=== PATIENT | male | born 1975 | race Caucasian/White ===

== ENCOUNTER 2020-01-31 09:10 | Outpatient (REF) | payer OTHER, SELFPAY ==
[2020-01-31 11:03] LABS: COVID-19 Test Negative (Negative)
== END 2020-01-31 09:11 | disposition home or self-care (01) ==
LOC: HO.EMPCOV 09:10
PROVIDERS: PCP Internal Medicine; Visit Provider Internal Medicine
DX: Z20.828 Contact with and (suspected) exposure to other viral communicable diseases (principal)
CPT/HCPCS: 87635; C9803

== ENCOUNTER 2020-02-29 06:30 | Outpatient (REF) | payer OTHER, SELFPAY ==
[2020-02-29 06:57] LABS: COVID-19 Test Negative (Negative)
== END 2020-02-29 06:31 | disposition home or self-care (01) ==
LOC: HO.EMPCOV 06:30
PROVIDERS: PCP Internal Medicine; Visit Provider Internal Medicine
DX: Z20.828 Contact with and (suspected) exposure to other viral communicable diseases (principal)
CPT/HCPCS: 87635; C9803

== ENCOUNTER → 2021-11-09 11:38 | Outpatient (BNVA) | payer OTHER, SELFPAY | PROVIDERS: PCP Internal Medicine; Visit Provider Physician Assistant Medical | DX: Z13.89 Encounter for screening for other disorder (principal) | CPT/HCPCS: 99202 ==

== ENCOUNTER → 2022-01-03 13:14 | Outpatient (RCR) | payer OTHER, SELFPAY ==
[2020-03-07 07:46] LABS: COVID-19 Test Negative (Negative)
[2020-03-22 09:32] LABS: SARS-COV-2 PCR UMBRL Not Detected
[2020-03-22 14:50] LABS: COVID-19 Test Negative (Negative)
[2020-03-31 15:30] LABS: SARS-COV-2 PCR UMBRL NEGATIVE
[2020-04-06 06:46] LABS: COVID-19 Test Negative (Negative)
== END | disposition home or self-care (01) ==
LOC: HO.EMPCOV 03-07 06:33
PROVIDERS: Visit Provider Internal Medicine
DX: Z20.828 Contact with and (suspected) exposure to other viral communicable diseases (principal)
CPT/HCPCS: 36415; 87635; C9803; U0003

== ENCOUNTER 2022-10-17 14:16 | Outpatient (AMB) | payer OTHER, SELFPAY ==
[2022-10-17 14:20] VITALS: BP 138/86; PULSE 86; O2SAT 98; BMI 28.5
--- NOTE | 2022-10-17 14:20 | A.OFFPC_ITS ---
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 Accompanied by: Self / Same As Patient Allergies No Known Allergies [No Known Allergies*] Allergy (Verified 10/17/22 14:21) Medication List - Last Reconciled 10/17/22 by Donato Driver MD bisacodyl (Dulcolax (bisacodyl)) 10 mg (2 x 5 mg) PO ONCE 1 day methylcellulose (laxative) (Citrucel) 500 mg PO DAILY polyethylene glycol 3350 (Miralax) 238 grams PO ONCE sennosides (Natural Senna Laxative) 8.6 mg PO BEDTIME Tobacco use date assessed: 10/17/22 Dental Screening Dental Screen Date: 10/17/22 Did you have a dental visit in the last 12 months?: No Did you have a dental problem in the last 6 months where you did not have access to dental care?: No Was dental information given to patient?: No HPI PE HPI Details healthy PFSH Surgical History No pertinent past surgical history Family History Mother No problems noted. Father No problems noted. Social History Housing: Apartment Patient Tobacco Use Status: Current everyday Tobacco user Tobacco use type: Cigarette Cigarettes Per Day: 10 e-Cigarette/Vaping Use: Never Used Second Hand Smoke Exposure: No service: No Current occupational status: employed Cognitive needs: No Hearing needs: No Vision needs: No Questionnaire PHQ-9 Over the last 2 weeks, how often have you been bothered by any of the following problems? 1. Little interest or pleasure in doing things: not at all 2. Feeling down, depressed, or hopeless: not at all 3. Trouble falling or staying asleep, or sleeping too much: not at all 4. Feeling tired or having little energy: not at all 5. Poor appetite or overeating: not at all 6. Feeling bad about yourself - or that you are a failure or have let yourself or your family down: not at all 7. Trouble concentrating on things, such as reading the newspaper or watching television: not at all 8. Moving or speaking so slowly that other people could have noticed. Or the opposite - being so fidgety or restless that you have been moving around a lot more than usual: not at all 9. Thoughts that you would be better off or of hurting yourself in some way: not at all Total score: 0 Depression Screening Interpretation: Negative 06936 - PHQ-9 Billing: Yes Source: Developed by Drs. Tyrone Perdomo, Shaye Escobar, Jose Eduardo Quesada and colleagues, with an educational monty from [employer]. Thrive Questionnaire Date Thrive assessed: 10/17/22 I am a: Patient What is your living situation today?: I have a steady place to live Within the past 12 months, did the food you bought not last and you didn't have the money to get more?: Never true Within the past 12 months, did you worry whether your food would run out before you got money to buy more?: Never true Do you have trouble paying for medicines?: No Do you have trouble getting transportation to medical appointments?: No Do you have trouble paying your heating and electricity bill?: No Do you have trouble taking care of your child, family member or friend?: No Do you have trouble with day-to-day activities such as bathing, preparing meals, shopping, managing finances, etc.?: No Are you currently unemployed and looking for a job?: No Are you interested in more education?: No Please select the resources that you would like help with: None Currently or been in a relationship where the following occur: no concerns reported AUDIT C Alcohol Use Questionnaire (AUDIT-C) 1. How often do you have a drink containing alcohol?: 2-3 times a week 2. How many drinks containing alcohol do you have on a typical day when you are drinking?: 5 or 6 3. How often do you have six or more drinks on one occasion?: Weekly Total Score: 8 Score Reviewed/Action Taken: Yes (discussed need to moderate) TESS-7 AMB Questionnaire TESS-7 Date TESS - 7 assessed: 10/17/22 Feeling nervous, anxious, or on edge: 0 = Not at all Not being able to stop or control worryin = Not at all Worrying too much about different things: 0 = Not at all Trouble relaxin = Not at all Being so restless that it is hard to sit still: 0 = Not at all Becoming easily annoyed or irritable: 0 = Not at all Feeling afraid as if something awful might happen: 0 = Not at all Total TESS-7 score (0-4 normal; 5-9 mild; 10-14 moderate; 15-21 severe): 0 Source: Developed by Drs. Tyrone Perdomo, Shaye Escobar, Jose Eduardo Quesada and colleagues, with an educational monty from [employer]. TESS-7 Assessment Billing TESS-7 Assessment Tool: TESS-7 Assessment 68986 Review of Systems Const Denies chills, Denies fatigue, Denies headache(s) and Denies weight loss Eyes Denies change in vision, Denies diplopia and Denies eye pain ENT Denies vertigo, Denies dizziness, Denies headache(s) and Denies nasal discharge Card Denies chest pain, Denies rapid heart rate and Denies dyspnea on exertion Resp Denies chest congestion, Denies cough, Denies pain with cough and Denies dyspnea on exertion GI Denies abdominal pain, Denies hematochezia and Denies change in bowel habits Musc Denies myalgias, Denies arthralgias and Denies joint swelling Skin/Breast Denies lesions and Denies unusual bruising Neuro Denies vertigo, Denies dizziness, Denies headache(s) and Denies focal weakness Endo Denies fatigue Physical exam (Primary Care) Vital Signs: Last Vital Signs Pulse 86 10/17/22 14:20 BP 138/86 10/17/22 14:20 Pulse Ox 98 10/17/22 14:20 Oxygen Delivery Method Room Air 10/17/22 14:20 BMI result Body Mass Index 28.5 Tobacco/Smoking Status: Tobacco use Status Tobacco use date assessed 10/17/22 10/17/22 14:26 Patient Tobacco Use Status Current everyday Tobacco 10/17/22 14:26 Tobacco use type Cigarette 10/17/22 14:26 e-Cigarette/Vaping Use Never Used 10/17/22 14:26 PHQ-9: PHQ-9 Score PHQ-9: Total score 0 10/17/22 14:26 Depression Screening Interpretation: Negative Thrive Assessment: Date of Thrive Assessment Date Thrive assessed 10/17/22 10/17/22 14:26 Currently or been in a relationship where the following occur: no concerns reported Const General: cooperative, healthy appearing and no acute distress Orientation/consciousness: oriented to person, oriented to place and oriented to time HENMT Head: Yes normal to inspection, Yes normocephalic and Yes atraumatic Mouth: Normal oral and palatal mucosa present and tongue normal Throat: Yes posterior oropharynx normal and Yes uvula midline Eyes General: appearance normal, both eyes and all related structures Neck Neck: Yes normal visual inspection, Yes full ROM and Yes no lymphadenopathy Thyroid: Thyroid normal Carotids: normal carotid upstroke Chest Chest palpation & inspection: normal inspection of the chest Resp Effort & Inspection: normal respiratory effort and able to speak in complete sentences Auscultation: clear to auscultation bilaterally Cardio Jugular venous distension: no JVD Palpation: normal PMI Rate: regular rate Rhythm: regular rhythm Heart sounds: S1 normal heart sound present and S2 normal heart sound present GI Inspection: Yes normal to inspection Palpation (GI): Soft to palpation and No hepatosplenomegaly present Auscultation: normal bowel sounds General: Yes no CVA tenderness Back/Spine/Pelvis Back: no CVA tenderness Skin General skin exam: no rashes or lesions noted Neuro General: oriented to person, oriented to place and oriented to time Extrem General: Yes normal to inspection and Yes full ROM Assessment and Plan Assessment & Plan (1) Physical exam: Code(s): Z00.00 - Encounter for general adult medical examination without abnormal findings Orders: Orders Comprehensive [place]. Panel Fast Today N28.9 - Disorder of kidney and ureter, unspecified Lipid Panel Today E78.5 - Hyperlipidemia, unspecified Thyroid Stimulating Hormone Today E03.9 - Hypothyroidism, unspecified Complete Blood Count Auto Diff Today D64.9 - Anemia, unspecified Referrals Orthopedics Referral M25.529 - Pain in unspecified elbow Coding Level of Care Code Est Pt Prev Care 40-64y(61377) Diagnoses Physical exam Z00.00 Additional Codes TESS-7 Assessment Billing - TESS-7 Assessment Tool: TESS-7 Assessment 39092 ([id number])
== END 2022-10-17 14:37 | disposition home or self-care (01) ==
PROVIDERS: PCP Internal Medicine; Visit Provider Internal Medicine
DX: Z00.00 Encounter for general adult medical examination without abnormal findings (principal)
CPT/HCPCS: 99396

== ENCOUNTER 2022-10-31 09:19 | Outpatient (REF) | payer OTHER, SELFPAY ==
--- NOTE | ~2022-10-31 | XR_ITS ---
EXAMINATION: XR ELBOW, LEFT CLINICAL INFORMATION: Lateral epicondylitis COMPARISON: 04/28/2019 TECHNIQUE: AP, lateral, and oblique views of the left elbow. FINDINGS: A tiny corticated osseous density seen along the ventral aspect of the distal humerus medially. No significant joint effusion is seen. There is mild soft tissue swelling. XR/XR elbow LT min 3V IMPRESSION: Alignment preserved. Tiny punctate soft tissue calcifications/ossific fragment adjacent to the proximal to mid shaft of the radius was not identified on the exam of 04/28/2019. Amorphous soft tissue calcifications adjacent to the lateral epicondyle. IMPRESSION: Tiny punctate soft tissue calcifications/ossific fragment adjacent to the proximal to mid shaft of the radius was not identified on the exam of 04/28/2019. Amorphous soft tissue calcifications adjacent to the lateral epicondyle, progressed since 2020. Correlation with clinical exam recommended to determine further management. Additional imaging with CT scan or MRI should be considered for better visualization as these modalities are much more sensitive for detection of fracture or other underlying pathology.
--- NOTE | ~2022-10-31 | XR_ITS ---
EXAMINATION: XR ELBOW, RIGHT CLINICAL INFORMATION: Lateral epicondylitis, unspecified elbow Evaluate for avulsion fracture COMPARISON: None available. TECHNIQUE: AP, lateral, and oblique views of the right elbow. FINDINGS: There is a 0.4 cm ossific or calcific density noted adjacent to the ulnar aspect of the radial head. This may represent a small avulsion fracture, of unknown origin. There is probably a small joint effusion. Alignment is anatomic. Joint spaces are maintained. XR/XR elbow RT min 3V IMPRESSION: 0.4 cm ossific or calcific density noted adjacent to the ulnar aspect of the radial head. This may represent a small avulsion fracture, of unknown origin.
== END 2022-10-31 09:20 | disposition home or self-care (01) ==
LOC: HO.HOSX 09:19
PROVIDERS: PCP Internal Medicine; Visit Provider Physical Medicine & Rehabilitation
DX: M77.01 Medial epicondylitis, right elbow (principal); M77.02 Medial epicondylitis, left elbow
CPT/HCPCS: 73080

== ENCOUNTER 2022-10-31 09:19 | Outpatient (AMB) | payer OTHER, SELFPAY ==
[2022-10-31 09:48] VITALS: BMI 28.5
--- NOTE | 2022-10-31 09:48 | A.OFFVIS_ITS ---
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 States currently his right is worse. Hx of bones spurs in elbow. States pain started about 2 yrs ago. Seen at work connection where xrays were done and he decline surgery. States his pain is constant and is worsen with movement or banging it on a surface. Has difficulty lifting. Has numbness and tingling in both hands, and his elbow is tender to touch. 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 That was 2 years ago. Went to work connection, xray done, told to have bone spurs that were said to be old . Worse since 1 month ago, banged right elbow on a hard surface. It was bruised. Severe pain. Constant numbness on more medial fingers. Weaker chrome cleaner and strength to carry. Used to curl up to 60 lbs before but not anymore. Left elbow on/off. Not as much numbness. If any, more the medial fingers. Treatment done so far: NSAIDs - tried no relief therapy - none yet no brace [facility] Medical History (Updated 10/31/22 @ 10:23 by Sis Cooper MD) Lateral epicondylitis of elbow Medial epicondylitis of both elbows Surgical History No pertinent past surgical history Family History Mother No problems noted. Father No problems noted. 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 MSK: Inspection reveals appropriate head and neck positioning. No pain with palpation over the neck musculature. Cervical ROM was full. Spurling's sign negative. Bilateral shoulder ROM WNL. No ligamentous laxity or crepitance. No increased effusion. No point tenderness on medial or lateral epicondyles. Mild tenderness over bilateral flexor and extensor tendons. No swelling or edema. Mild pain with resisted wrist flexion. No intrinsic hand weakness noted. No atrophy noted. Olya test negative. Carpal compression test positive bilateral wrists. Tinel sign positive bilateral elbow and wrist. Strength is 5/5 in all muscle groups tested. No increased tone noted. Neurological: Neurologic examination of the upper and lower extremities was nonfocal with intact sensation, muscle stretch reflexes and without focal motor deficits . Hunter?s negative bilaterally. Babinski was down going bilaterally. Clonus was negative. Gait is non-antalgic without loss of balance. Results Reviewed Results Reviewed: I independently reviewed the results of the following: Independently reviewed images on PACS left elbow 04/28/2019 - small osseous structures seen medially, no fracture, no swelling. Possible avulsion fracture. Reading mentioned that possible old injury. I reviewed records from the following: PCP Assessment & Plan Assessment & Plan (1) Medial epicondylitis of both elbows: Code(s): M77.01 - Medial epicondylitis, right elbow; M77.02 - Medial epicondylitis, left elbow (2) Lateral epicondylitis of elbow: Code(s): M77.10 - Lateral epicondylitis, unspecified elbow (3) Carpal tunnel syndrome on both sides: Code(s): G56.03 - Carpal tunnel syndrome, bilateral upper limbs (4) Ulnar neuropathy at elbow: Code(s): G56.20 - Lesion of ulnar nerve, unspecified upper limb Plan Chronic on and off bilateral elbow pain, most likely from repetitive motion, causing medial flexor tendinopathy and lateral extensor tendinopathy. Old left elbow x-ray showed possible avulsion fracture. We will provide with counterforce brace to use during the day and at work. Ice and relative rest. We will do elbow x-rays today. Given numbness in distribution of both median and ulnar nerves, we will schedule for EMG. He can also wear wrist splint at night. Assessment and plan discussed with patent, and patient was agreeable. All questions were answered thoroughly.. Follow-up after EMG Orders: Orders XR wrist LT min 3V Today M77.01 - Medial epicondylitis, right elbow, M77.02 - Medial epicondylitis, left elbow, M77.10 - Lateral epicondylitis, unspecified elbow XR wrist RT min 3V Today M77.01 - Medial epicondylitis, right elbow, M77.02 - Medial epicondylitis, left elbow, M77.10 - Lateral epicondylitis, unspecified e lbow NE nerve conduction velocity Today G56.03 - Carpal tunnel syndrome, bilateral upper limbs, G56.20 - Lesion of ulnar nerve, unspecified upper limb Coding Level of Care Code New Pt Level 4 (48129) Diagnoses Medial epicondylitis of both elbows M77.01; M77.02 Lateral epicondylitis of elbow M77.10 Carpal tunnel syndrome on both sides G56.03 Ulnar neuropathy at elbow G56.20
== END 2022-10-31 10:28 | disposition home or self-care (01) ==
PROVIDERS: PCP Internal Medicine; Visit Provider Physical Medicine & Rehabilitation
DX: M77.01 Medial epicondylitis, right elbow (principal); M77.02 Medial epicondylitis, left elbow; M77.10 Lateral epicondylitis, unspecified elbow; G56.03 Carpal tunnel syndrome, bilateral upper limbs; G56.20 Lesion of ulnar nerve, unspecified upper limb
CPT/HCPCS: 99204

== ENCOUNTER 2022-11-06 14:14 | Outpatient (REF) | payer OTHER, SELFPAY ==
--- NOTE | 2022-11-06 14:18 | EMG_ITS ---
Chief complaint: Chronic bilateral elbow and wrist pain, seen in the office by me last week, see full note Reason for referral: Evaluate for Carpal Tunnel Syndrome or ulnar neuropathy Procedure done: Bilateral upper extremities NCS/EMG Precautions and/or limitations: None The limb temperature was monitored continuously and remained between 32-36 degrees C during the performance of the NCS. Nerve Conduction Studies Anti Sensory Summary Table ?Stim Site NR Onset (ms) Norm Onset (ms) Peak (ms) Norm Peak (ms) O-P Amp (?V) Norm O-P Amp Site1 Site2 Delta-0 (ms) Dist (cm) Orlando (m/s) Norm [place] (m/s) Left Median Anti Sensory (2nd Digit) Wrist ? 3.6 3.8 <3.6 14.2 >10 Wrist 2nd Digit 3.6 14.0 39 Right Median Anti Sensory (2nd Digit) Wrist ? 2.6 3.3 <3.6 21.4 >10 Wrist 2nd Digit 2.6 14.0 54 Right Radial Anti Sensory (Thumb) Forearm ? 1.4 2.0 <3.1 32.8 Forearm Thumb 1.4 0.0 Left Ulnar Anti Sensory (5th Digit) Wrist ? 2.5 3.4 <3.7 50.3 >15.0 Wrist 5th Digit 2.5 14.0 56 Right Ulnar Anti Sensory (5th Digit) Wrist ? 2.3 3.0 <3.7 29.0 >15.0 Wrist 5th Digit 2.3 14.0 61 Motor Summary Table ?Stim Site NR Onset (ms) Norm Onset (ms) O-P Amp (mV) Norm O-P Amp iAmp (mV) Amp (1st) (%) Site1 Site2 Delta-0 (ms) Dist (cm) Orlando (m/s) Norm [place] (m/s) Left Median Motor (Abd Poll Brev) Wrist ? 9.2 <3.9 2.7 >4.5 3.9 100.0 Elbow Wrist 4.2 24.5 58 >45 Elbow ? 13.4 3.2 3.4 118.5 Right Median Motor (Abd Poll Brev) Wrist ? 3.5 <3.9 4.5 >4.5 5.4 100.0 Elbow Wrist 4.0 13.5 34 >45 Elbow ? 7.5 3.8 4.7 84.4 Left Ulnar Motor (Abd Dig Minimi) Wrist ? 2.7 <3.0 7.9 >5 11.7 100.0 B Elbow Wrist 3.5 20.0 57 >45 B Elbow ? 6.2 7.8 12.0 98.7 A Elbow B Elbow 1.4 10.0 71 >45 A Elbow ? 7.6 7.3 11.3 92.4 Right Ulnar Motor (Abd Dig Minimi) Wrist ? 2.3 <3.0 6.1 >5 7.5 100.0 B Elbow Wrist 3.7 19.0 51 >45 B Elbow ? 6.0 6.0 7.5 98.4 A Elbow B Elbow 1.0 10.0 100 >45 A Elbow ? 7.0 6.7 8.5 109.8 Comparison Summary Table ?Stim Site NR Peak (ms) Norm Peak (ms) P-T Amp (?V) Site1 Site2 Delta-P (ms) Norm Delta (ms) Right Median/Radial Dig I Comparison (Digit 1 - 10cm) Median ? 2.5 <2.9 61.1 Median Radial 0.3 Radial ? 2.2 <2.8 6.9 EMG ?Side Muscle Nerve Root Ins Act Fibs Psw Amp Dur Poly Recrt Int Pat Comment Right Abd Poll Brev Median C8-T1 Nml Nml Nml Nml Nml 0 Nml Complete Right 1stDorInt Ulnar C8-T1 Nml Nml Nml Nml Nml 0 Nml Complete Right FlexCarRad Median C6-7 Nml Nml Nml Nml Nml 0 Nml Complete Right Biceps Musculocut C5-6 Nml Nml Nml Nml Nml 0 Nml Complete Right Triceps Radial C6-7-8 Nml Nml Nml Nml Nml 0 Nml Complete Right Deltoid Axillary C5-6 Nml Nml Nml Nml Nml 0 Nml Complete Left 1stDorInt Ulnar C8-T1 Nml Nml Nml Nml Nml 0 Nml Complete Left FlexCarRad Median C6-7 Nml Nml Nml Nml Nml 0 Nml Complete Left Biceps Musculocut C5-6 Nml Nml Nml Nml Nml 0 Nml Complete Left Triceps Radial C6-7-8 Nml Nml Nml Nml Nml 0 Nml Complete Left Deltoid Axillary C5-6 Nml Nml Nml Nml Nml 0 Nml Complete FINDINGS: Right median motor nerve showed normal distal latency, normal amplitude and slow conduction velocity. Left median motor nerve showed prolonged distal latency, small amplitude and normal conduction velocity. Left median sensory nerve showed prolonged peak latency. Interlatency difference between left median and radial sensory nerves recording digit 1 was normal 0.3. All other nerves tested were within normal. Concentric needle EMG was performed in selected muscles of the bilateral upper extremities. Study did not reveal signs of electric abnormalities as shown in the table below. IMPRESSION: 1. This is an abnormal study. 2. There is electrodiagnostic evidence for bilateral median neuropathy at the wrist. Suspect moderate-severe on the left side. Right side shows more motor involvement. 3. There is no electrodiagnostic evidence for ulnar neuropathy, brachial plexopathy, or cervical radiculopathy. CLINICAL COMMENT: A purely motor median neuropathy/Carpal Tunnel Syndrome is rare. However his symptoms are consistent with Carpal Tunnel Syndrome. Findings on left side is more straightforward Carpal Tunnel Syndrome. Thank you for your kind referral. Sis Cooper MD, AMANDO Board Certified, [place] Board of Physical Medicine and Rehabilitation (ABPMR) Board Certified, [place] Board of Electrodiagnostic Medicine (ABEM) MTDD
== END 2022-11-06 14:15 | disposition home or self-care (01) ==
LOC: HO.NEURO 14:14
PROVIDERS: PCP Internal Medicine; Visit Provider Physical Medicine & Rehabilitation
DX: G56.03 Carpal tunnel syndrome, bilateral upper limbs (principal); G56.20 Lesion of ulnar nerve, unspecified upper limb
CPT/HCPCS: 95886; 95911

== ENCOUNTER 2022-11-13 09:50 | Day surgery (SDC) | payer OTHER, SELFPAY ==
--- NOTE | 2022-11-11 12:29 | HO.ANESPROP2 ---
Documented by User: Alla Singh NP 11/11/22 12:29 HPI - Anesthesia Eval Consult details Narrative: 47yo M for Colonoscopy PMFSH Active Problems Active Problems: All Active Problems (Updated 10/31/22 @ 10:23 by Sis Cooper MD) Ulnar neuropathy at elbow (Acute) Carpal tunnel syndrome on both sides (Acute) Lateral epicondylitis of elbow (Acute) Medial epicondylitis of both elbows (Acute) Loose stools (Acute) Physical exam (Acute) Past Medical History Medical History History of abscessed tooth Lateral epicondylitis of elbow Medial epicondylitis of both elbows Family History Family History Mother No problems noted. Father No problems noted. Surgical History Surgical History No pertinent past surgical history Social History Social History Housing: Apartment Patient Tobacco Use Status: Current everyday Tobacco user Tobacco use type: Cigarette Cigarettes Per Day: 10 Years Smoked: 20 Smoked in Last 30 Days: Yes e-Cigarette/Vaping Use: Never Used Second Hand Smoke Exposure: No Use of substances other than those prescribed or required for medical reasons: Yes Substance Use Type Other:: THC edibles Substance Use Frequency: Weekly Are you DNR?: No Advance Directives: No Advance Directives Information Provided: Yes service: No Current occupational status: employed 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 Cognitive needs: No Hearing needs: No Vision needs: No Meds Allergies Allergy/AdvReac Type Severity Reaction Status Date / Time No Known Allergies Allergy Verified 11/13/22 10:09 [No Known Allergies*] Home Medications Medication Instructions Recorded Confirmed Last Taken Type No Known Home Meds 11/13/22 11/13/22 Unknown History Exam Exam Date and Time: November 11, 2022 122 Assessment and Plan Assessment Anesthesia Assessment: Chart Reviewed Documented by User: Rivka Thomas MD 11/13/22 10:40 PMFSH Past Medical History Medical History History of abscessed tooth Lateral epicondylitis of elbow Medial epicondylitis of both elbows Family History Family History Mother No problems noted. Father No problems noted. Surgical History Surgical History No pertinent past surgical history History of Problems with Anesthesia: No Social History Social History Housing: Apartment Patient Tobacco Use Status: Current everyday Tobacco user Tobacco use type: Cigarette Cigarettes Per Day: 10 Years Smoked: 20 Smoked in Last 30 Days: Yes e-Cigarette/Vaping Use: Never Used Second Hand Smoke Exposure: No Use of substances other than those prescribed or required for medical reasons: Yes Substance Use Type Other:: THC edibles Substance Use Frequency: Weekly Are you DNR?: No Advance Directives: No Advance Directives Information Provided: Yes service: No Current occupational status: employed 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 Cognitive needs: No Hearing needs: No Vision needs: No Meds Allergies Allergy/AdvReac Type Severity Reaction Status Date / Time No Known Allergies Allergy Verified 11/13/22 10:09 [No Known Allergies*] Home Medications Medication Instructions Recorded Confirmed Last Taken Type No Known Home Meds 11/13/22 11/13/22 Unknown History Exam Airway Mallampati Class: III TM Dist: >3cm Neck ROM: Full Loose/Missing/Broken Teeth: No Heart: RRR Lungs: CTA Assessment and Plan Assessment Anesthesia Assessment: Anesthesia Plan Discussed Final Anesthetic Review History of Problems with Anesthesia: No NPO: Yes ASA Class: II Final Preanesthetic Review: Meds/Allgs Chart Reviewed, Consent Obtained/Reviewed and Anes Risks/Benef Reviewed Patient Risk: Low Procedure Risk: Low Anesthetic Plan Anesthetic Plan: MAC: Disposition: Standard PACU
[2022-11-11 14:27] VITALS: BMI 28.5
[2022-11-13 10:15] VITALS: BMI 28.5
[2022-11-13 10:22] VITALS: BP 151/98; PULSE 68; RESP 16; TEMP 36.8; O2SAT 97
[2022-11-13] MEDS: Lactated Ringers 1,000 ML 100 ML IVCONT (10:45)
--- NOTE | 2022-11-13 10:46 | MHC.SHP ---
Pre-Procedural Eval Section A Date of Service: 11/13/22 Section B Chief Complaint: screening colonoscopy Relevant Family History (Specify if Yes): No Relevant Social History: Alcohol Use (smoking) Present Medications: see Short Stay Collaborative assessment Medical History: Significant History (History of abscessed tooth Lateral epicondylitis of elbow Medial epicondylitis of both elbows) History of Previous Operations: No relevant previous surgery Allergies: Allergies Allergy/AdvReac Type Severity Reaction Status Date / Time No Known Allergies Allergy Verified 11/13/22 10:09 [No Known Allergies*] Review of Systems Sugical H&P ROS: Negative: Constitution, Cardiovascular, Respiratory, Neurological, Psychiatric, Hem-Onc, Allergic/Immunologic, Gastrointestinal, Genitourinary, Musculoskeletal, Integumentary, Endocrine and Eyes/Ears/Nose/Throat Exam Surgical H&P Exam: Normal: HEENT, Normal: Heart, Normal: Lungs, Normal: Extremities, Normal: Abdomen, Normal: Skin and Normal: Neurological Plan Diagnosis/Plan: Unchanged I have reviewed the history and physical and performed a pertinent physical examination on my patient. No changes have occurred unless specified. Time Spent With Patient Time: Total time managing care of this patient today ____ minutes.
--- NOTE | 2022-11-13 11:40 | W.PM.OPN ---
Operative Note Operative Note Date of Service: 11/13/22 Narrative: Operative Information Procedure Description: Colonoscopy Indication: screening Anesthesia: MAC COLONOSCOPY Instrument: Olympus variable stiffness Adult scope 190L Colonoscopy Monitoring: Vital signs and clinical assessment, continuous EKG monitoring, Pulse oximetry, Carbon Dioxide monitoring and blood pressure monitoring were done throughout the procedure. Colon withdrawal time was 15 minutes. Procedure: The patient was placed in the left lateral decubitis position and pre-procedure medications were administered. After a digital rectal examination of the ano-rectum, the video colonoscope was inserted into the rectum and advanced through the colon to the cecum/TI. The colonoscope was slowly withdrawn in a retrograde panoramic fashion and the colon mucosa was carefully examined including a retroflexed view of the rectum. Findings and interventions are described below. Procedure Difficulty: easy Findings: Terminal Ileum-normal Cecum:normal Ascending Colon: 8-10 mm sessile polyp removed with cold snare Transverse Colon: 6-8 mm sessile polyp removed with cold forceps Descending Colon: 7-8 mm sessile polyp removed with cold snare Sigmoid Colon: 6-8 mm sessile polyp removed with cold snare Rectum: Retroflexion with small internal hemorrhoids, grade I Anorectum - normal Colon preparation: [place] Bowel Preparation Scale Right colon; 2 Transverse colon: 2 Left colon; 2 (0 = Unprepared colon segment with mucosa not seen due to solid stool that cannot be cleared. 1 = Portion of mucosa of the colon segment seen, but other areas of the colon segment not well seen due to staining, residual stool and/or opaque liquid. 2 = Minor amount of residual staining, small fragments of stool and/or opaque liquid, but mucosa of colon segment seen well. 3 = Entire mucosa of colon segment seen well with no residual staining, small fragments of stool or opaque liquid) Impression and Post Procedure Diagnosis: polyps internal hemorrhoids Plan: High fiber diet leaflet Avoid straining at stool, epsom salts and sitz bath, anusol supps or cream Repeat Colonoscopy in 3-4 years or earlier if clinically indicated Above findings were reviewed with the patient and relevant handouts were provided if indicated.
[2022-11-13 11:45] VITALS: BP 118/69; PULSE 65; RESP 18; TEMP 36.6; O2SAT 98
[2022-11-13 12:00] VITALS: BP 128/76; PULSE 78; RESP 18; TEMP 36.6; O2SAT 97
== END 2022-11-13 12:20 | disposition home or self-care (01) ==
PROVIDERS: PCP Internal Medicine; Visit Provider Internal Medicine Gastroenterology
PROC: 0DJD8ZZ Inspection of Lower Intestinal Tract, Via Natural or Artificial Opening Endoscopic (ICD-10-PCS; CPT 45378; principal; 2022-11-13 12:00)
DX: Z12.11 Encounter for screening for malignant neoplasm of colon (principal); D12.2 Benign neoplasm of ascending colon; D12.3 Benign neoplasm of transverse colon; K63.5 Polyp of colon; K64.0 First degree hemorrhoids; F17.210 Nicotine dependence, cigarettes, uncomplicated
CPT/HCPCS: 45385; 45380; 88305

== ENCOUNTER → 2022-11-13 09:50 | Outpatient (BNV) | payer OTHER, SELFPAY | PROVIDERS: PCP Internal Medicine; Visit Provider Internal Medicine Gastroenterology | DX: Z12.11 Encounter for screening for malignant neoplasm of colon (principal); D12.2 Benign neoplasm of ascending colon; D12.3 Benign neoplasm of transverse colon; D12.4 Benign neoplasm of descending colon; D12.5 Benign neoplasm of sigmoid colon; K64.0 First degree hemorrhoids | CPT/HCPCS: 45380; 45385 ==

== ENCOUNTER 2022-11-20 09:02 | Outpatient (AMB) | payer OTHER, SELFPAY ==
--- NOTE | 2022-11-20 09:09 | A.OFFVIS_ITS ---
Intake Intake Visit Reasons: ov- EMG review B/L elbow Intake Note: Solo is a 47 year old right hand dominant male presents today for bilateral elbow pain follow up. EMG was done on 11/06/22. 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 That was 2020. Went to work connection, xray done, told to have bone spurs that were said to be old . Worse since 1 month ago, banged right elbow on a hard surface. It was bruised. Severe pain. Constant numbness on more medial fingers. 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 Used to curl up to 60 lbs before but not anymore. Treatment done so far: NSAIDs - tried no relief therapy - none yet Been wrist splints. EMG done by me, see below. [facility] Medical History History of abscessed tooth Lateral epicondylitis of elbow Medial epicondylitis of both elbows Surgical History No pertinent past surgical history Family History Mother No problems noted. Father No problems noted. 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 MSK: Worse tenderness to fingers below the lateral epicondyle, bilateral. Worse with wrist extension against resistance. No intrinsic hand weakness noted. No atrophy noted. Olya test negative. Carpal compression test positive bilateral wrists. Tinel sign positive bilateral elbow and wrist. Strength is 5/5 in all muscle groups tested. No increased tone noted. Neurological: Neurologic examination of the upper and lower extremities was nonfocal with intact sensation, muscle stretch reflexes and without focal motor deficits . Hunter?s negative bilaterally. Babinski was down going bilaterally. Clonus was negative. Gait is non-antalgic without loss of balance. Results Reviewed Results Reviewed: Reviewed images with patient, bilateral elbow x-rays. However we could not visualize the calcifications mentioned in the reports below. right elbow xray: FINDINGS: There is a 0.4 cm ossific or calcific density noted adjacent to the ulnar aspect of the radial head. This may represent a small avulsion fracture, of unknown origin. There is probably a small joint effusion. Alignment is anatomic. Joint spaces are maintained.? XR/XR elbow RT min 3V IMPRESSION: 0.4 cm ossific or calcific density noted adjacent to the ulnar aspect of the radial head. This may represent a small avulsion fracture, of unknown origin. left elbow xray: IMPRESSION: Tiny punctate soft tissue calcifications/ossific fragment adjacent to the proximal to mid shaft of the radius was not identified on the exam of 04/28/2019. ? Amorphous soft tissue calcifications adjacent to the lateral epicondyle, progressed since 2020. ? Correlation with clinical exam recommended to determine further management. Additional imaging with CT scan or MRI should be considered for better visualization as these modalities are much more sensitive for detection of fracture or other underlying pathology. EMG done by me 11/07/22: IMPRESSION: 1. This is an abnormal study. 2. There is electrodiagnostic evidence for bilateral median neuropathy at the wrist. Suspect moderate-severe on the left side.? Right side shows more motor involvement. 3. There is no electrodiagnostic evidence for? ulnar neuropathy, brachial plexopathy, or cervical radiculopathy. CLINICAL COMMENT: A purely motor median neuropathy/Carpal Tunnel Syndrome is rare.? However his symptoms are consistent with Carpal Tunnel Syndrome. Findings on left side is more straightforward Carpal Tunnel Syndrome. I reviewed records from the following: PCP Assessment & Plan Assessment & Plan (1) Lateral epicondylitis of elbow: Code(s): M77.10 - Lateral epicondylitis, unspecified elbow Plan: Injury in 2019, possible avulsion fracture at that time, bilateral. Right elbow limits him at work because of pain. At this time it is reasonable to obtain an elbow MRI, right. He has done adequate conservative management including physical therapy, braces and NSAIDs. (2) Carpal tunnel syndrome on both sides: Code(s): G56.03 - Carpal tunnel syndrome, bilateral upper limbs Plan: He is considering surgery for Carpal Tunnel Syndrome. Referring him to Dr. Guerra. Plan Assessment and plan discussed with patent, and patient was agreeable. All questions were answered thoroughly. Orders: Orders MR elbow RT wo con Today M77.10 - Lateral epicondylitis, unspecified elbow Coding Level of Care Code Est Pt Level 4 (14920) Diagnoses Lateral epicondylitis of elbow M77.10 Carpal tunnel syndrome on both sides G56.03
== END 2022-11-20 10:14 | disposition home or self-care (01) ==
PROVIDERS: PCP Internal Medicine; Visit Provider Physical Medicine & Rehabilitation
DX: M77.11 Lateral epicondylitis, right elbow (principal); G56.03 Carpal tunnel syndrome, bilateral upper limbs; M77.12 Lateral epicondylitis, left elbow
CPT/HCPCS: 99214

== ENCOUNTER → 2022-11-20 09:02 | Outpatient (BNVA) | payer OTHER, SELFPAY | PROVIDERS: PCP Internal Medicine; Visit Provider Physical Medicine & Rehabilitation ==

== ENCOUNTER 2022-11-22 14:33 | Outpatient (AMB) | payer OTHER, SELFPAY ==
--- NOTE | 2022-11-22 14:50 | MHC.OFFVIS ---
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 Denies any issues with anesthesia in the past.? Denies any history of sleep apnea.? No history infectious diseases in the past or present.? Not on any anticoagulation therapy.? No family or personal history of colon cancer or polyps.? Patient denies melena, hematochezia, unintentional weight loss or ribbon like stools.? Reports that his bowels are on the lose her side and he feels like he does not empty completely when he goes to the bathroom. Patient feels like he has to go again to have a bowel movement. Patient might have 2-3 bowel movements within couple hours. Occasional blood when he wipes. Patient does reports that when he has to go to the bathroom sometimes he will have abdominal cramping. I will send him script for Citrucel and Senokot so we can empty his bowels completely. Citrucel help him bulk his stools. However discussed with patient not to take Citrucel for a week before the procedure. Discussed at length the pre-procedure,? prep, diet & medications as well as what to expect prior, during and after the procedure.?? Stressed the importance of good bowel prep. ?Recommended the use of Vaseline or Calmoseptine OTC & baby wipes with bowel movements to promote comfort.? ?Patient verbalizes understanding and agrees to plan of care.? He was given the opportunity to ask questions and all questions answered.? We will see his after the procedure.? Loose stools Start Citrucel daily every morning with full glass of water. Patient can also take Senokot to help him empty his bowels completely. Patient is aware not to take Citrucel 1 week before the procedure to prevent from bulking his stools. I will see him after the procedure, sooner on as needed basis. Patient is agreeable to this plan and verbalizes understanding of instructions. He was given the opportunity to ask questions and all questions answered. ? Thank you for allowing me to participate in his care Plan Orders Orders Vitamin B12 and Folate 12/17/21 R19.7 C Reactive Protein 12/17/21 K58.9 Vitamin D 25-OH (D2 and D3) 12/17/21 E55.9 Transglutaminase IgA 12/17/21 R10.9 Transglutaminase Ab IgG 12/17/21 R10.9 Medications New bisacodyl (Dulcolax (bisacodyl)) take 2 tabs at noon the day before your colonoscopy 10 mg (2 x 5 mg) PO ONCE 2 tabs 0RF 1 day Z12.11 sennosides (Natural Senna Laxative) take it every evening 8.6 mg PO BEDTIME 90 tabs 3RF constipation K59.00 methylcellulose (laxative) (Citrucel) take it with full glass of water 500 mg PO DAILY 90 tabs 2RF K59.00 polyethylene glycol 3350 (Miralax) As directed by gastroenterology department at [facility] 238 grams PO ONCE 238 grams 0RF Z12.11 COLONOSCOPY: Findings: Terminal Ileum-normal Cecum:normal Ascending Colon: 8-10 mm sessile polyp removed with cold snare Transverse Colon: 6-8 mm sessile polyp removed with cold forceps Descending Colon: 7-8 mm sessile polyp removed with cold snare Sigmoid Colon: 6-8 mm sessile polyp removed with cold snare Rectum: Retroflexion with small internal hemorrhoids, grade I Anorectum - normal Colon preparation: [place] Bowel Preparation Scale Right colon; 2 Transverse colon: 2 Left colon; 2 (0 = Unprepared colon segment with mucosa not seen due to solid stool that cannot be cleared. 1 = Portion of mucosa of the colon segment seen, but other areas of the colon segment not well seen due to staining, residual stool and/or opaque liquid. 2 = Minor amount of residual staining, small fragments of stool and/or opaque liquid, but mucosa of colon segment seen well. 3 = Entire mucosa of colon segment seen well with no residual staining, small fragments of stool or opaque liquid) Impression and Post Procedure Diagnosis: polyps internal hemorrhoids Plan: High fiber diet leaflet Avoid straining at stool, epsom salts and sitz bath, anusol supps or cream Repeat Colonoscopy in 3-4 years or earlier if clinically indicated PATHOLOGY: Diagnosis A. Colon, ascending, polypectomy: Sessile serrated lesion/polyp, no evidence of cytologic dysplasia. B. Colon, transverse, polypectomy: Tubular adenoma, no evidence of high-grade dysplasia or invasive carcinoma. C. Colon, descending and sigmoid, polypectomies: Hyperplastic polyps. TODAY'S VISIT Patient is here today for follow-up and to discuss colonoscopy results. Patient denies any ill effects from the prep, anesthesia or procedure itself. Patient reports to be feeling well except occasional postprandial abdominal bloating and loose stools. Patient does admit to be eating fast food often. He eats red meat. Not much fiber. Patient denies melena, hematochezia, unintentional weight loss or ribbon like stools. Patient is aware that when he changes his diet he is feeling well. Patient reports occasional dyspepsia without dysphagia or odynophagia. He is not taking anything to help her move his bowels. Does not take any thing to relieve acid reflux. Patient states that he does not usually get acid reflux. Patient denies any abdominal pain or discomfort. Flu [facility] Medical History (Updated 11/28/22 @ 20:28 by Magi Figueroa [facility]) Tubular adenoma History of abscessed tooth Lateral epicondylitis of elbow Medial epicondylitis of both elbows Surgical History Hx of colonoscopy No pertinent past surgical history Family History Mother No problems noted. Father No problems noted. 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 Cognitive needs: No Hearing needs: No Vision needs: No Review of Systems Const Denies weight gain and Denies weight loss ENT Reports no additional complaints, Denies dysphagia and Denies odynophagia Card Reports no additional complaints Resp Reports no additional complaints GI Reports abdominal pain, Denies belching, Denies melena, Denies bloating, Denies change in bowel habits, Denies dysphagia, Denies excessive flatus, Denies dyspepsia, Denies heartburn, Denies diarrhea, Reports loose stools, Denies nausea, Denies odynophagia and Denies vomiting Reports no additional complaints Musc Reports no additional complaints Neuro Reports no additional complaints Psych Reports no additional complaints Endo Reports no additional complaints Physical Exam Vital Signs: Last Vital Signs Pulse 75 11/22/22 14:52 BP 130/80 11/22/22 14:52 BMI result Body Mass Index 28.3 Const General: healthy appearing, no acute distress and well developed Nutritional Appearance: well nourished Orientation/consciousness: patient oriented x3 HEENT Head: Yes normal to inspection, Yes normocephalic and Yes atraumatic Face and sinus: Yes normal facial exam Mouth: Normal oral and palatal mucosa present Throat: Yes posterior oropharynx normal, Yes tonsils normal and Yes uvula midline Eyes General: appearance normal, both eyes and all related structures Neck Neck: Yes normal visual inspection, Yes full ROM and Yes trachea midline Thyroid: Thyroid normal Resp Effort & Inspection: normal respiratory effort, able to speak in complete sentences, no tracheal deviation and symmetric chest movement Auscultation: clear to auscultation bilaterally Cardio Rate: regular rate Heart sounds: S1 normal heart sound present and S2 normal heart sound present GI Inspection: Yes normal to inspection and No distended Palpation (GI): Soft to palpation, not firm, nontender and No hepatosplenomegaly present Auscultation: normal bowel sounds General: Yes no CVA tenderness Back/Spine/Pelvis Back: no CVA tenderness Skin General skin exam: elasticity normal, turgor normal and dry skin Neuro General: patient oriented x3 Psych Appearance: grossly normal Mental Status: mental status grossly normal Speech and movement: Normal speech and movement present Assessment & Plan Assessment & Plan (1) Tubular adenoma: Code(s): D36.9 - Benign neoplasm, unspecified site Plan: Tubular adenoma without high-grade dysplasia or carcinoma found. Patient will return for colorectal screening in 3 years, sooner if clinically necessary. Patient denies melena, hematochezia, unintentional weight loss or ribbon like stools. (2) Status post colonoscopy: Code(s): Z98.890 - Other specified postprocedural states Plan: Patient denies any ill effects from the prep, anesthesia or procedure itself. Tubular adenoma found without high-grade dysplasia or carcinoma. Colorectal screening in 3 years, sooner if clinically necessary. Patient will follow-up with our office on as-needed basis. He is agreeable to this plan and verbalizes understanding of instructions. He was given the opportunity to ask questions and all questions answered. Thank you for allowing me to participate in his care Coding Level of Care Code Est Pt Level 3 (69738) Diagnoses Tubular adenoma D36.9 Status post colonoscopy Z98.890 Time Spent (min) 25 Comment 15 minutes spent with patient and additional 10 minutes spent reviewing his records
[2022-11-22 14:52] VITALS: BP 130/80; PULSE 75; BMI 28.3
== END 2022-11-22 15:20 | disposition home or self-care (01) ==
PROVIDERS: PCP Internal Medicine; Visit Provider Nurse Practitioner Family
DX: D36.9 Benign neoplasm, unspecified site (principal); Z98.890 Other specified postprocedural states
CPT/HCPCS: 99213

== ENCOUNTER → 2022-11-22 14:33 | Outpatient (BNVA) | payer OTHER, SELFPAY | PROVIDERS: PCP Internal Medicine; Visit Provider Nurse Practitioner Family ==

== ENCOUNTER 2022-12-10 18:36 | Outpatient (REF) | payer OTHER, SELFPAY ==
--- NOTE | ~2022-12-10 | MR_ITS ---
EXAMINATION: MRI ELBOW WITHOUT CONTRAST, RIGHT CLINICAL INFORMATION: Lateral epicondylitis. Calcifications seen in the radial head. Evaluate for underlying fracture pathology. COMPARISON: X-ray 12/10/2022. TECHNIQUE: MR of the elbow without contrast was performed on a 1.5 Candis axial scanner. FINDINGS: BONE AND JOINTS: There are subchondral cysts and edema in the anterior/ulnar aspect of the radial head, with overlying cartilage heterogeneity, irregularity and fissuring. In the articular surface, this measures approximately 0.6 cm AP, 0.8 cm transverse. These findings could reflect sequela of degeneration, osteochondral lesion. There is a 0.5 cm focus adjacent to the ulnar aspect of the radial head, with a mixture of [id number] T2 signal. This likely correlates with the calcific or ossific density seen on the recent x-ray. This is of uncertain etiology. This could reflect sequela of age-indeterminate fracture, loose body. A donor site is not clearly evident. No acute fracture is otherwise identified. Small fluid in the elbow joint. TENDONS AND MUSCLES: There is increased T2 signal in the common extensor tendon origin suggestive of tendinosis plus/minus ill-defined interstitial tearing. Common flexor tendon, biceps, brachialis, triceps tendons are intact. LIGAMENTS: Slight thickening and intermediate T2 signal in the proximal ulnar collateral ligament could reflect sprain injury. No significant tear is identified of the radial collateral ligament, lateral, ulnar collateral ligaments. ULNAR NERVE: Within normal limits. MR/MR elbow RT wo con IMPRESSION: 1. Osteochondral findings in the anterior/ulnar aspect of the radial head measuring 0.6 x 0.8 cm. Differential considerations include osteochondral lesion/OCD, sequela of degeneration. 2. There is a 0.5 cm focus adjacent to the ulnar aspect of the radial head, likely correlating with the finding seen on the prior x-ray. This is of uncertain etiology. Differential considerations include avulsion fracture of indeterminate age, loose body. 3. Extensor tendon findings suggest tendinosis plus/minus ill-defined interstitial tearing. 4. Possible mild sprain of the proximal aspect of the ulnar collateral ligament. 5. Recommend orthopedic consultation and management.
== END 2022-12-10 18:37 | disposition home or self-care (01) ==
LOC: HO.MRI 18:36
PROVIDERS: PCP Internal Medicine; Visit Provider Physical Medicine & Rehabilitation
DX: M77.11 Lateral epicondylitis, right elbow (principal)
CPT/HCPCS: 73221

== ENCOUNTER 2022-12-11 11:48 | Outpatient (AMB) | payer OTHER, SELFPAY ==
--- NOTE | 2022-12-11 12:09 | MHC.OFFVIS ---
Intake Vital Signs 12/11/22 12:30 Height 6 ft 2 in Weight 220 lb BMI 28.2 Intake Visit Reasons: OV- EMG review b/L hands Intake Note: Solo 47 yr old male presents today for his EMG review of bilateral hands. Patient is interested in surgery. Allergies No Known Allergies [No Known Allergies*] Allergy (Verified 12/11/22 12:31) HPI OV- EMG review b/L hands HPI Details Solo is a 47 year old right hand dominant man who presents for a NCS review of his bilateral hand numbness. 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 He complains of numbness in the median nerve distribution bilaterally, R>L. His numbness is constant and worse at night. He also complains of some numbness in the ulnar nerve distribution of the right hand. 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 He wears braces at night, which have not been particularly helpful. He says he has light duty he can do at work He is being seen by Dr. Willingham for his bilateral elbow pain, R>L. He is scheduled for an MRI review of his right elbow with her on 12/12/22. He reports a prior injury to his elbow. [facility] Medical History (Updated 12/11/22 @ 13:00 by Salomon Lopez) Tubular adenoma History of abscessed tooth Lateral epicondylitis of elbow Medial epicondylitis of both elbows Surgical History Hx of colonoscopy No pertinent past surgical history Family History Mother No problems noted. Father No problems noted. Social History Housing: Apartment Patient Tobacco Use Status: Current everyday Tobacco user Tobacco use type: Cigarette Cigarettes Per Day: 10 Years Smoked: 20 e-Cigarette/Vaping Use: Never Used Second Hand Smoke Exposure: No service: No Current occupational status: employed Current occupation: [employer] / rt hand Cognitive needs: No Hearing needs: No Vision needs: No Review of Systems Const All systems reviewed & are unremarkable except as noted in HPI and below Physical Exam Vital Signs: BMI result Body Mass Index 28.2 Const General: cooperative, healthy appearing and no acute distress Orientation/consciousness: patient oriented x3 HEENT Head: Yes normocephalic and Yes atraumatic Eyes EOM: EOMs intact bilaterally Resp Effort & Inspection: normal respiratory effort and able to speak in complete sentences Cardio Jugular venous distension: no JVD Skin General skin exam: turgor normal Rashes: no rashes Neuro General: patient oriented x3 Extrem Other: Evaluation of Bilateral Upper Extremity: The patient is alert, oriented, and in no acute distress Neuro: Dense numbness in the median nerve distribution bilaterally. Dense numbness in the ulnar nerve distribution of the right hand No thenar or intrinsic wasting Good APB muscle belly firing and good finger cross Vascular: Cap refill brisk ROM: He can make a fist and extend all his digits No locking or catching Skin: No lacerations or abrasions. General: No Ecchymosis. No Erythema or evidence of infection. Nerve Conduction Study: IMPRESSION: 1. This is an abnormal study. 2. There is electrodiagnostic evidence for bilateral median neuropathy at the wrist. Suspect moderate-severe on the left side. Right side shows more motor involvement. 3. There is no electrodiagnostic evidence for ulnar neuropathy, brachial plexopathy, or cervical radiculopathy. CLINICAL COMMENT: A purely motor median neuropathy/Carpal Tunnel Syndrome is rare. However his symptoms are consistent with Carpal Tunnel Syndrome. Findings on left side is more straightforward Carpal Tunnel Syndrome. Sis Cooper MD, AMANDO 11/06/22 Psych Appearance: grossly normal Affect: normal affect Attitude: cooperative Assessment & Plan Assessment & Plan (1) Carpal tunnel syndrome on both sides: Code(s): G56.03 - Carpal tunnel syndrome, bilateral upper limbs (2) Numbness of right hand: Code(s): R20.0 - Anesthesia of skin Plan Assessment & Plan: 1. Right Carpal tunnel syndrome, moderate-severe With dense numbness, worse at night 2. Left Carpal tunnel syndrome With dense numbness, worse at night 3. Right hand numbness In the ulnar nerve distribution NCS negative for Cubital tunnel syndrome The patient will keep a close eye on his small finger numbness and see if there is any change following his right carpal tunnel release I educated him about this condition I discussed operative and non-operative treatment options The patient would like to proceed with surgery, beginning with the right side We can discuss treatment for his left side when he has recovered from surgery The risks and benefits of operative treatment were discussed with the patient and the patient wishes to proceed with surgery. These risks include, but are not limited to risk of damage to blood vessels, nerves, tendons, infection, recurrence, incomplete relief of preoperative symptoms, persistent pain, possible need for further surgery and the risks associated with regional blocks and anesthesia. The plan is to take the patient to the operating room sometime in the next few weeks for the following procedures: 1. Right Carpal tunnel release, under local All of the preoperative paperwork including the consent was filled out today. All the patient's questions were answered. The patient understands that they will be contacted by our operating room scheduler soon to schedule this procedure He denies Diabetes, blood thinners, asthma, heart, lung, kidney issues Scribed for Nell Guerra MD by Salomon Lopez, emergency medicine medical director, on 12/11/22 at 12:45 PM, EST. Coding Level of Care Code New Pt Level 4 (42389) Diagnoses Carpal tunnel syndrome on both sides G56.03 Numbness of right hand R20.0
[2022-12-11 12:30] VITALS: BMI 28.2
== END 2022-12-11 12:59 | disposition home or self-care (01) ==
PROVIDERS: PCP Internal Medicine; Visit Provider Orthopaedic Surgery
DX: G56.03 Carpal tunnel syndrome, bilateral upper limbs (principal); R20.0 Anesthesia of skin
CPT/HCPCS: 99204

== ENCOUNTER → 2022-12-11 11:48 | Outpatient (BNVA) | payer OTHER, SELFPAY | PROVIDERS: PCP Internal Medicine; Visit Provider Orthopaedic Surgery ==

== ENCOUNTER 2023-01-30 11:57 | Day surgery (SDC) | payer OTHER, SELFPAY ==
[2023-01-30 12:35] VITALS: BP 156/89; PULSE 71; RESP 16; TEMP 37.1; O2SAT 97; BMI 28.2
--- NOTE | 2023-01-30 13:29 | MHC.SHP ---
Pre-Procedural Eval Section A Date of Service: 01/30/23 The patient is an INPATIENT: No Changes since office visit: No Cold of Flu in the past 2 weeks, No New Medical Problems, No Changes in Medication and No Patient answered all questions The History & Physical has been completed within 30 days and I have reviewed it.: Yes Section B Chief Complaint: Carpal tunnel syndrome, right upper limb Allergies: Allergies Allergy/AdvReac Type Severity Reaction Status Date / Time No Known Allergies Allergy Verified 12/11/22 12:31 [No Known Allergies*] Plan I have reviewed the history and physical and performed a pertinent physical examination on my patient. No changes have occurred unless specified. Time Spent With Patient Time: Total time managing care of this patient today ____ minutes.
--- NOTE | 2023-01-30 13:29 | W.PM.OPN ---
Operative Note Operative Note Date of Service: 01/30/23 Narrative: Preop diagnosis: 1. right Carpal tunnel syndrome Postop diagnosis: same Procedure: 1. right Carpal tunnel release Surgeon: Nell Guerra MD Anesthesia: local block using 1% lidocaine with epinephrine Findings: Thickened transverse carpal ligament. EBL: Less than 5 mL Specimens: None Complications: None Disposition: Brought to recovery room in stable condition Plan: Follow-up for 10-14 days for wound check and suture removal Indications: The patient is 47 years old, with right carpal tunnel syndrome that has been unresponsive to nonoperative management. The risks and benefits of operative treatment including but not limited to risk of damage to blood vessels, nerves, tendons, infection, persistent pain, persistent symptoms, or possible need for additional surgery were discussed with the patient and the patient wishes to proceed with surgery. Procedure: Once consent was obtained a local block was performed using a combination of 1% lidocaine with epinephrine. The patient was then brought back to the operating suite and placed on the operative table in supine position. The right upper extremity was prepped and draped in a standard surgical fashion. Once assured that we had a good block, a 2.0 cm longitudinal incision was made centered over the carpal tunnel. The incision was made through the skin to the subcutaneous tissues using a #15 blade. Dissection was made down to the level of the transverse carpal ligament with care being taken to protect the palmar cutaneous nerve. Once the transverse carpal ligament was clearly visualized, a longitudinal incision was made in the transverse carpal ligament 1st using a #15 blade, then using tenotomy scissors under direct visualization. Care was taken to look for and protect the motor branch of the median nerve when seen in this area. Once satisfied with our carpal tunnel release the wound was copiously irrigated with normal saline and hemostasis was obtained with a brief period of local pressure. The skin edges were reapproximated with some 5.0 nylon suture material and a sterile dressing was applied. The patient appears to have tolerated the procedure well and with no complications. All digits were well vascularized at the conclusion of the case.
[2023-01-30 13:47] VITALS: BP 161/91; PULSE 74; RESP 15; O2SAT 98
== END 2023-01-30 13:49 | disposition home or self-care (01) ==
PROVIDERS: PCP Internal Medicine; Visit Provider Orthopaedic Surgery
PROC: (CPT 64721; principal; 2023-01-30 13:40)
DX: G56.01 Carpal tunnel syndrome, right upper limb (principal); F17.210 Nicotine dependence, cigarettes, uncomplicated
CPT/HCPCS: 64721; J0171

== ENCOUNTER → 2023-01-30 11:57 | Outpatient (BNV) | payer OTHER, SELFPAY | PROVIDERS: PCP Internal Medicine; Visit Provider Orthopaedic Surgery | DX: G56.01 Carpal tunnel syndrome, right upper limb (principal) | CPT/HCPCS: 64721 ==

== ENCOUNTER 2023-02-13 13:58 | Outpatient (AMB) | payer OTHER, SELFPAY ==
--- NOTE | 2023-02-13 14:05 | A.OFFVIS_ITS ---
Intake Vital Signs 02/13/23 14:06 Height 6 ft 2 in Weight 220 lb BMI 28.2 Intake Visit Reasons: PO-Rt CTR 01/30 AR Intake Note: Solo 47 yr old male presents today for his P/O visit for his right hand CTR from 01/30/23. States numbness and tingling has improved however he cont's to have tingling. Allergies No Known Allergies [No Known Allergies*] Allergy (Verified 02/13/23 14:07) HPI PO-Rt CTR 01/30 AR HPI Details 47-year-old male who presents in the off ice today 2 weeks status post right carpal tunnel release, which was performed on 01/30/[address] Guerra. The patient reports his numbness and tingling has improved, however, he continues to have some tingling. [facility] Medical History (Updated 12/11/22 @ 13:00 by Salomon Lopez) Tubular adenoma History of abscessed tooth Lateral epicondylitis of elbow Medial epicondylitis of both elbows Surgical History Hx of colonoscopy No pertinent past surgical history Family History Mother No problems noted. Father No problems noted. 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 No surrounding erythema or drainage. No signs of infection. Sutures intact. Able to make a full fist. Able to perform full finger flexion, extension, abduction, adduction, finger cross, okay sign, and thumbs up without deficit. The patient reports still having numbness and tingling in all digits. However, he states he has slightly improved, but is still experiencing some tingling sensations. Assessment & Plan Assessment & Plan (1) Carpal tunnel syndrome on both sides: Code(s): G56.03 - Carpal tunnel syndrome, bilateral upper limbs (2) Numbness of right hand: Code(s): R20.0 - Anesthesia of skin Plan Mr. De Guzman is a 47-year-old male who presents in the office today 2 weeks status post right carpal tunnel release, which was performed on 01/30/[address] Guerra. The patient reports his numbness and tingling has improved, however, he continues to have some tingling. Sutures were removed and steri-stripes were applied while in the office today. He will follow up in 4 weeks, or sooner if needed. Patient Instructions: Scribed for Little Duncan PA-C by Johana Hughes registered medical assistant, on 02/13/2023 at 2:02 pm, EST. Coding Level of Care Code Global (72916) Diagnoses Carpal tunnel syndrome on both sides G56.03 Numbness of right hand R20.0
[2023-02-13 14:06] VITALS: BMI 28.2
== END 2023-02-13 14:12 | disposition home or self-care (01) ==
PROVIDERS: PCP Internal Medicine; Visit Provider Physician Assistant
DX: G56.03 Carpal tunnel syndrome, bilateral upper limbs (principal); R20.0 Anesthesia of skin
CPT/HCPCS: 99024

== ENCOUNTER → 2023-02-13 13:58 | Outpatient (BNVA) | payer OTHER, SELFPAY | PROVIDERS: PCP Internal Medicine; Visit Provider Physician Assistant ==

== ENCOUNTER 2023-10-21 14:07 | Outpatient (AMB) | payer OTHER, SELFPAY ==
--- NOTE | 2023-10-21 14:10 | MHC.PC.OV ---
Vital Signs 10/21/23 14:14 Height 6 ft 2 in Weight 203 lb BMI 26.1 BP 134/76 Blood Pressure Location Lt brachial Position Sitting Pulse 74 Pulse Source Pulse Oximeter Pulse Oximetry (%) 98 Oxygen Delivery Method Room Air Intake Visit Reasons: PE Intake Note: Patient is here today for a physical. Telephone Order Dispatcher Required: No Accompanied by: Self / Same As Patient Allergies No Known Allergies [No Known Allergies*] Allergy (Verified 10/21/23 14:11) Medication List - Last Reconciled 10/22/23 by Donato Driver MD No Known Home Meds Tobacco use date assessed: 10/17/22 Dental Screening Dental Screen Date: 10/21/23 Did you have a dental visit in the last 12 months?: No Did you have a dental problem in the last 6 months where you did not have access to dental care?: No Was dental information given to patient?: Patient has dentist HPI PE HPI Details healthy [facility] Medical History (Updated 12/11/22 @ 13:00 by Salomon Lopez) Tubular adenoma History of abscessed tooth Lateral epicondylitis of elbow Medial epicondylitis of both elbows Surgical History Hx of colonoscopy No pertinent past surgical history Family History Mother No problems noted. Father No problems noted. 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 1. Little interest or pleasure in doing things: not at all 2. Feeling down, depressed, or hopeless: not at all 3. Trouble falling or staying asleep, or sleeping too much: not at all 4. Feeling tired or having little energy: not at all 5. Poor appetite or overeating: not at all 6. Feeling bad about yourself - or that you are a failure or have let yourself or your family down: not at all 7. Trouble concentrating on things, such as reading the newspaper or watching television: not at all 8. Moving or speaking so slowly that other people could have noticed. Or the opposite - being so fidgety or restless that you have been moving around a lot more than usual: not at all 9. Thoughts that you would be better off or of hurting yourself in some way: not at all Total score: 0 Depression Screening Interpretation: Negative Depression Screening Done: Yes 52735 - PHQ-9 Billing: Yes Source: Developed by Drs. Tyrone Perdomo, Shaye Escobar, Jose Eduardo Quesada and colleagues, with an educational monty from [employer]. Thrive Questionnaire Date Thrive assessed: 10/21/23 I am a: Patient What is your living situation today?: I have a steady place to live Within the past 12 months, did the food you bought not last and you didn't have the money to get more?: Never true Within the past 12 months, did you worry whether your food would run out before you got money to buy more?: Never true Do you have trouble paying for medicines?: No Do you have trouble getting transportation to medical appointments?: No Do you have trouble paying your heating and electricity bill?: No Do you have trouble taking care of your child, family member or friend?: No Do you have trouble with day-to-day activities such as bathing, preparing meals, shopping, managing finances, etc.?: No Are you currently unemployed and looking for a job?: No Are you interested in more education?: No Please select the resources that you would like help with: None Currently or been in a relationship where the following occur: No concerns reported THRIVE Score: 0 AUDIT C Alcohol Use Questionnaire (AUDIT-C) 1. How often do you have a drink containing alcohol?: 2-3 times a week 2. How many drinks containing alcohol do you have on a typical day when you are drinking?: 5 or 6 3. How often do you have six or more drinks on one occasion?: Weekly Total Score: 8 Score Reviewed/Action Taken: Yes (discussed need to moderate) TESS-7 AMB Questionnaire TESS-7 Date TESS - 7 assessed: 10/21/23 Feeling nervous, anxious, or on edge: 0 = Not at all Not being able to stop or control worryin = Not at all Worrying too much about different things: 0 = Not at all Trouble relaxin = Not at all Being so restless that it is hard to sit still: 0 = Not at all Becoming easily annoyed or irritable: 0 = Not at all Feeling afraid as if something awful might happen: 0 = Not at all Total TESS-7 score (0-4 normal; 5-9 mild; 10-14 moderate; 15-21 severe): 0 Source: Developed by Drs. Tyrone Perdomo, Shaye Escobar, Jose Eduardo Quesada and colleagues, with an educational monty from [employer]. TESS-7 Assessment Billing TESS-7 Assessment Tool: TESS-7 Assessment 90305 Review of Systems Const Denies chills, Denies fatigue, Denies headache(s) and Denies weight loss Eyes Denies change in vision, Denies diplopia and Denies eye pain ENT Denies vertigo, Denies dizziness, Denies headache(s) and Denies nasal discharge Card Denies chest pain, Denies rapid heart rate and Denies dyspnea on exertion Resp Denies chest congestion, Denies cough, Denies pain with cough and Denies dyspnea on exertion GI Denies abdominal pain, Denies hematochezia and Denies change in bowel habits Musc Denies myalgias, Denies arthralgias and Denies joint swelling Skin/Breast Denies lesions and Denies unusual bruising Neuro Denies vertigo, Denies dizziness, Denies headache(s) and Denies focal weakness Endo Denies fatigue Physical exam (Primary Care) Vital Signs: Last Vital Signs Pulse 74 10/21/23 14:14 BP 134/76 10/21/23 14:14 Pulse Ox 98 10/21/23 14:14 Oxygen Delivery Method Room Air 10/21/23 14:14 BMI result Body Mass Index 26.1 Tobacco/Smoking Status: Tobacco use Status Tobacco use date assessed 10/17/22 10/21/23 14:14 Patient Tobacco Use Status Current everyday Tobacco 10/21/23 14:14 Tobacco use type Cigarette 10/21/23 14:14 e-Cigarette/Vaping Use Never Used 10/21/23 14:14 PHQ-9: PHQ-9 Score PHQ-9: Total score 0 10/21/23 14:14 Depression Screening Interpretation: Negative Thrive Assessment: Date of Thrive Assessment Date Thrive assessed 10/21/23 10/21/23 14:14 Currently or been in a relationship where the following occur: No concerns reported Const General: cooperative, healthy appearing and no acute distress Orientation/consciousness: oriented to person, oriented to place and oriented to time HENMT Head: Yes normal to inspection, Yes normocephalic and Yes atraumatic Mouth: Normal oral and palatal mucosa present and tongue normal Throat: Yes posterior oropharynx normal and Yes uvula midline Eyes General: appearance normal, both eyes and all related structures Neck Neck: Yes normal visual inspection, Yes full ROM and Yes no lymphadenopathy Thyroid: Thyroid normal Carotids: normal carotid upstroke Chest Chest palpation & inspection: normal inspection of the chest Resp Effort & Inspection: normal respiratory effort and able to speak in complete sentences Auscultation: clear to auscultation bilaterally Cardio Jugular venous distension: no JVD Palpation: normal PMI Rate: regular rate Rhythm: regular rhythm Heart sounds: S1 normal heart sound present and S2 normal heart sound present GI Inspection: Yes normal to inspection Palpation (GI): Soft to palpation and No hepatosplenomegaly present Auscultation: normal bowel sounds General: Yes no CVA tenderness Back/Spine/Pelvis Back: no CVA tenderness Skin General skin exam: no rashes or lesions noted Neuro General: oriented to person, oriented to place and oriented to time Extrem General: Yes normal to inspection and Yes full ROM Assessment and Plan Assessment & Plan (1) Physical exam: Code(s): Z00.00 - Encounter for general adult medical examination without abnormal findings Orders: Orders Lipid Panel 10/21/23 Z13.220 - Encounter for screening for lipoid disorders Complete Blood Count Auto Diff 10/21/23 Z13.0 - Encounter for screening for diseases of the blood and blood-forming organs and certain disorders involving the immune mechanism Comprehensive [place]. Panel Fast 10/21/23 Z13.9 - Encounter for screening, unspecified Thyroid Stimulating Hormone 10/21/23 Z13.29 - Encounter for screening for other suspected endocrine disorder Referrals Podiatry Referral M72.2 - Plantar fascial fibromatosis Coding Level of Care Code Est Pt Prev Care 40-64y(21878) Diagnoses Physical exam Z00.00 Additional Codes TESS-7 Assessment Billing - TESS-7 Assessment Tool: TESS-7 Assessment 89245 ([id number])
[2023-10-21 14:14] VITALS: BP 134/76; PULSE 74; O2SAT 98; BMI 26.1
== END 2023-10-21 14:28 | disposition home or self-care (01) ==
PROVIDERS: PCP Internal Medicine; Visit Provider Internal Medicine
DX: Z00.00 Encounter for general adult medical examination without abnormal findings (principal)
CPT/HCPCS: 99396

== ENCOUNTER 2024-10-22 12:51 | Outpatient (AMB) | payer OTHER, SELFPAY ==
[2024-10-22 12:57] VITALS: BP 116/62; PULSE 64; RESP 18; O2SAT 94; BMI 26.3
--- NOTE | 2024-10-22 12:57 | MHC.PC.OV ---
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: No Accompanied by: Self / Same As Patient Allergies No Known Allergies (No Known Allergies*) Allergy (Verified 10/22/24 13:06) Medication List - Last Reconciled 10/22/24 by SILVA Villegas No Known Home Meds Tobacco use date assessed: 10/22/24 Dental Screening Dental Screen Date: 10/22/24 Did you have a dental visit in the last 12 months?: No Did you have a dental problem in the last 6 months where you did not have access to dental care?: No Was dental information given to patient?: Patient has dentist HPI KATRINA DR Driver HPI Details The patient is a 49-year-old male presenting to transition care from Dr. Driver who retired 5 months ago. The patient is here with concerns of dizziness and numbness in the hands. The patient reports experiencing numbness in both hands, which comes and goes despite having undergone surgery for carpal tunnel syndrome. The condition is described as severe, affecting both arms, and persists despite surgical intervention. The patient also reports episodes of dizziness, particularly when working in heat, despite adequate hydration. The dizziness occurs once or twice daily and is sometimes alleviated by consuming a mint, suggesting a possible link to blood sugar levels. Additionally, the patient experiences fatigue in the legs, which were previously strong, and this has been a recent development. The fatigue is severe enough to require the patient to stop walking at times. The patient has a history of plantar fasciitis in right foot, which began after stepping on an acorn while jogging. The pain is located on the top and bottom of the right foot and is sometimes accompanied by swelling. The patient has a significant family history of cancer, with multiple family members on both sides having from the disease. The patient reports poor sleep quality, waking up frequently, and has not undergone a sleep study. There is a history of waking up gasping for air, which has since resolved. The patient has a history of arthritis in the spine, which was diagnosed years ago and contributes to back pain. PFSH Medical History Tubular adenoma History of abscessed tooth Lateral epicondylitis of elbow Medial epicondylitis of both elbows Surgical History Hx of colonoscopy No pertinent past surgical history Family History Mother No problems noted. Father No problems noted. 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 1. Little interest or pleasure in doing things: not at all 2. Feeling down, depressed, or hopeless: not at all 3. Trouble falling or staying asleep, or sleeping too much: not at all 4. Feeling tired or having little energy: more than half the days 5. Poor appetite or overeating: several days 6. Feeling bad about yourself - or that you are a failure or have let yourself or your family down: not at all 7. Trouble concentrating on things, such as reading the newspaper or watching television: not at all 8. Moving or speaking so slowly that other people could have noticed. Or the opposite - being so fidgety or restless that you have been moving around a lot more than usual: not at all 9. Thoughts that you would be better off or of hurting yourself in some way: not at all Total score: 3 Depression Screening Interpretation: Negative Depression Screening Done: Yes 26591 - PHQ-9 Billing: Yes Source: Developed by Drs. Tyrone Perdomo, Shaye Escobar, Jose Eduardo Quesada and colleagues, with an educational monty from [employer]. Thrive Questionnaire Date Thrive assessed: 10/22/24 I am a: Patient What is your living situation today?: I have a steady place to live Within the past 12 months, did the food you bought not last and you didn't have the money to get more?: Sometimes True Within the past 12 months, did you worry whether your food would run out before you got money to buy more?: Sometimes True Do you have trouble paying for medicines?: No Do you have trouble getting transportation to medical appointments?: No Do you have trouble paying your heating and electricity bill?: No Do you have trouble taking care of your child, family member or friend?: No Do you have trouble with day-to-day activities such as bathing, preparing meals, shopping, managing finances, etc.?: No Are you currently unemployed and looking for a job?: No Are you interested in more education?: No Please select the resources that you would like help with: None Currently or been in a relationship where the following occur: No concerns reported THRIVE Score: 2 AUDIT C Alcohol Use Questionnaire (AUDIT-C) 1. How often do you have a drink containing alcohol?: 2-3 times a week 2. How many drinks containing alcohol do you have on a typical day when you are drinking?: 3 or 4 3. How often do you have six or more drinks on one occasion?: Less than monthly Total Score: 5 TESS-7 AMB Questionnaire TESS-7 Date TESS - 7 assessed: 10/22/24 Feeling nervous, anxious, or on edge: 0 = Not at all Not being able to stop or control worryin = Not at all Worrying too much about different things: 1 = Several days Trouble relaxin = Not at all Being so restless that it is hard to sit still: 0 = Not at all Becoming easily annoyed or irritable: 1 = Several days Feeling afraid as if something awful might happen: 0 = Not at all Total TESS-7 score (0-4 normal; 5-9 mild; 10-14 moderate; 15-21 severe): 2 Source: Developed by Drs. Tyrone Perdomo, Shaye Escobar, Jose Eduardo Quesada and colleagues, with an educational monty from [employer] TESS-7 Assessment Billing TESS-7 Assessment Tool: TESS-7 Assessment 81235 Review of Systems Const Reports daytime sleepiness, Reports fatigue, Denies headache(s), Reports snoring and Reports weakness (BLE with exertion) Eyes Denies loss of vision ENT Denies vertigo, Reports dizziness (Intermittent), Denies headache(s) and Denies sore throat Card Denies chest pain, Denies leg edema and Denies lightheadedness Resp Denies cough, Denies hemoptysis, Reports snoring and Denies wheezing GI Denies abdominal pain, Denies melena, Denies constipation, Denies diarrhea and Denies vomiting Denies dysuria, Denies urinary frequency and Denies urinary urgency Musc Reports back pain (Chronic), Reports arthralgias (Multiple joint, shoulder, elbows, knees, ankles), Reports joint swelling (Ankles, knees, hands), Reports numbness (Bilateral hands) and Reports tingling (Bilateral hands) Neuro Denies Abnormal speech present, Denies behavioral changes, Denies vertigo, Reports dizziness (Intermittent), Denies headache(s), Denies loss of vision, Denies memory loss, Reports numbness (Bilateral hands), Reports tingling (Bilateral hands) and Reports weakness (BLE with exertion) Psych Denies anxiety, Denies behavioral changes, Denies depression, Denies memory loss and Denies panic attacks Endo Reports fatigue Davis/Lymph Denies easy bleeding and Denies easy bruising Aller/Immun Denies wheezing Physical exam (Primary Care) Vital Signs: Last Vital Signs Pulse 64 10/22/24 12:57 Resp 18 10/22/24 12:57 BP 116/62 10/22/24 12:57 Pulse Ox 94 10/22/24 12:57 Oxygen Delivery Method Room Air 10/22/24 12:57 BMI result Body Mass Index 26.3 Tobacco/Smoking Status: Tobacco use Status Tobacco use date assessed 10/22/24 10/22/24 13:05 Patient Tobacco Use Status Current everyday Tobacco 10/22/24 13:05 Tobacco use type Cigarette 10/22/24 13:05 e-Cigarette/Vaping Use Never Used 10/22/24 13:05 PHQ-9: PHQ-9 Score PHQ-9: Total score 3 10/22/24 13:28 Depression Screening Interpretation: Negative Thrive Assessment: Date of Thrive Assessment Date Thrive assessed 10/22/24 10/22/24 13:05 Currently or been in a relationship where the following occur: No concerns reported Const General: healthy appearing, no acute distress, alert and awake Nutritional Appearance: well nourished Orientation/consciousness: oriented to person, oriented to place and oriented to time HENMT Ears: TM's normal bilaterally General nose exam: Normal nasal mucous membranes and turbinates present Eyes Conjunctivae: conjunctivae normal Sclerae: sclerae normal Pupils: Equal, round and reactive pupils present Neck Neck: Yes no lymphadenopathy and Yes no JVD Thyroid: Thyroid normal Carotids: no bruits Resp Effort & Inspection: normal respiratory effort and not tachypneic Auscultation: no crackles, no rales, no rhonchi and no wheezes Cardio Rate: regular rate Rhythm: regular rhythm Heart sounds: no murmurs and normal S1 and S2 GI Palpation (GI): Soft to palpation, nontender, no hepatomegaly and no splenomegaly Auscultation: normal bowel sounds General: Yes no CVA tenderness Back/Spine/Pelvis Back: no CVA tenderness Thoracic/Lumbar Spine: lumbar spinal tenderness Skin General skin exam: no rashes or lesions noted and dry skin Neuro General: oriented to person, oriented to place and oriented to time Cranial nerves: Yes Equal, round and reactive pupils present Speech: No Abnormal speech present Gait exam (Neuro): Normal gait present Motor exam (neuro): no tremor noted Extrem Right upper extremity: full ROM, elbow/forearm Details: no tenderness and no swelling and Extremity exam: right hand Details: no swelling Left upper extremity: full ROM, elbow/forearm Details: no tenderness and no swelling and hand Details: no swelling Right lower extremity: full ROM, lower leg (fatigue/weakness with exertion), ankle and foot Details: edema Location: of the dorsal foot; no edema Left lower extremity: full ROM and lower leg (fatigue/weakness with exertion); no edema Psych Mental Status: mental status grossly normal Speech and movement: Normal speech and movement present Affect: normal affect Attitude: cooperative Thought process: Normal thought process present Coding Level of Care Code Est Pt Level 4 (58802) Diagnoses Fatigue, unspecified type R53.83 Fatigue type: unspecified Dizziness R42 Snoring R06.83 Apneic episode R06.81 Numbness of right hand R20.0 Joint swelling M25.40 Arthralgia, unspecified joint M25.50 Joint pain location: unspecified Bilateral leg weakness R29.898 Plantar fasciitis M72.2 Additional Codes PHQ-9 - 21591 - PHQ-9 Billing: Yes ([id number]) TESS-7 Assessment Billing - TESS-7 Assessment Tool: TESS-7 Assessment 26841 ([id number]) Time Spent (min) 43 Assessment & Plan Assessment & Plan (1) Fatigue: Code(s): R53.83 - Other fatigue Category: Medical Qualifiers: Fatigue type: unspecified Qualified Code(s): R53.83 - Other fatigue Plan: Reports feeling fatigued and drained. Labs and home sleep study ordered to further evaluate (2) Dizziness: Code(s): R42 - Dizziness and giddiness Category: Medical Plan: Patient reports intermittent dizziness even after making sure that he is well hydrated. The CBC and CMP, +EKG ordered to further evaluate. (3) Snoring: Code(s): R06.83 - Snoring Category: Medical Plan: Home sleep study ordered (4) Apneic episode: Code(s): R06.81 - Apnea, not elsewhere classified Category: Medical Plan: Home sleep study ordered. (5) Numbness of right hand: Code(s): R20.0 - Anesthesia of skin Category: Medical (6) Joint swelling: Code(s): M25.40 - Effusion, unspecified joint Category: Medical (7) Joint pain: Code(s): M25.50 - Pain in unspecified joint Category: Medical Qualifiers: Joint pain location: unspecified Qualified Code(s): M25.50 - Pain in unspecified joint (8) Bilateral leg weakness: Code(s): R29.898 - Other symptoms and signs involving the musculoskeletal system Category: Medical Plan: Patient reports that he had times after take rest periods. No focal deficit noted on exam. Encouraged adequate hydration. We will order a set of comprehensive blood work to rule out different conditions. Gait steady and no extraneous movements noted. (9) Plantar fasciitis: Code(s): M72.2 - Plantar fascial fibromatosis Category: Medical Plan: Encouraged massaging right foot calf. Continue adequate hydration. Wear comfortable shoes to assist in alleviating pain/discomfort Plan The plan includes conducting a comprehensive set of laboratory tests, including a Lyme panel and ISMA, to rule out autoimmune conditions and other underlying causes of the patient's symptoms. An EKG is planned to assess cardiac function, given the patient's dizziness and fatigue, to rule out any cardiac-related issues. A sleep study is recommended to evaluate for possible sleep apnea, which may be contributing to the patient's poor sleep quality and daytime fatigue. Additionally, the patient is advised to undergo a testosterone level check to assess for any hormonal imbalances that could be affecting his energy levels. The patient is encouraged to continue with regular physical activity but to monitor symptoms closely, particularly dizziness and fatigue, and to seek medical attention if these symptoms worsen. Follow-up is scheduled in six weeks to review test results and reassess the patient's condition. Patient was informed and verbally consented to the use of an ambient scribe for clinic note documentation during this visit. Orders: Orders Comprehensive [place]. Panel Fast Today R42 - Dizziness and giddiness, R53.83 - Other fatigue, Z00.00 - Encounter for general adult medical examination without abnormal findings UA CC w/rflx Micro + Cult Today R42 - Dizziness and giddiness, R53.83 - Other fatigue, Z00.00 - Encounter for general adult medical examination without abnormal findings CRP High Sensitivity Today R42 - Dizziness and giddiness, R53.83 - Other fatigue, Z00.00 - Encounter for general adult medical examination without abnormal findings Vitamin B12 and Folate Today R42 - Dizziness and giddiness, R53.83 - Other fatigue, Z00.00 - Encounter for general adult medical examination without abnormal findings Lyme IgG/IgM w/reflex to WB Today R42 - Dizziness and giddiness, R53.83 - Other fatigue, Z00.00 - Encounter for general adult medical examination without abnormal findings ISMA Reflex Titer and Pattern Today M25.40 - Effusion, unspecified joint, M25.50 - Pain in unspecified joint, R42 - Dizziness and giddiness, R53.83 - Other fatigue, Z00.00 - Encounter for general adult medical examination without abnormal findings Uric Acid Today M25.40 - Effusion, unspecified joint, M25.50 - Pain in unspecified joint, M77.10 - Lateral epicondylitis, unspecified elbow, R53.83 - Other fatigue B Type Natriuretic Peptide Today M25.40 - Effusion, unspecified joint, M25.50 - Pain in unspecified joint, R42 - Dizziness and giddiness, R53.83 - Other fatigue Complete Blood Count Auto Diff Today R42 - Dizziness and giddiness, R53.83 - Other fatigue, Z00.00 - Encounter for general adult medical examination without abnormal findings TSH reflex Free T4 Today R42 - Dizziness and giddiness, R53.83 - Other fatigue, Z00.00 - Encounter for general adult medical examination without abnormal findings Vitamin D 25-OH Total Today R42 - Dizziness and giddiness, R53.83 - Other fatigue, Z00.00 - Encounter for general adult medical examination without abnormal findings Hemoglobin A1c Today R42 - Dizziness and giddiness, R53.83 - Other fatigue, Z00.00 - Encounter for general adult medical examination without abnormal findings Erythrocyte Sedimentation Rate Today R42 - Dizziness and giddiness, R53.83 - Other fatigue, Z00.00 - Encounter for general adult medical examination without abnormal findings ECG 12 lead EKG Today R42 - Dizziness and giddiness, R53.83 - Other fatigue, Z00.00 - Encounter for general adult medical examination without abnormal findings RT sleep testing - MSLT Today R06.81 - Apnea, not elsewhere classified, R06.83 - Snoring, R42 - Dizziness and giddiness, R53.83 - Other fatigue Testosterone, Free/Total Today R53.83 - Other fatigue
== END 2024-10-22 13:42 | disposition home or self-care (01) ==
LOC: HO.HMCH 12:52
DX: R53.83 Other fatigue (principal); R42 Dizziness and giddiness; R06.83 Snoring; R06.81 Apnea, not elsewhere classified; R20.0 Anesthesia of skin; M25.40 Effusion, unspecified joint; M25.50 Pain in unspecified joint; R29.898 Other symptoms and signs involving the musculoskeletal system; M72.2 Plantar fascial fibromatosis

== ENCOUNTER → 2024-10-22 12:51 | Outpatient (BNVA) | payer OTHER, SELFPAY | PROVIDERS: PCP Internal Medicine | DX: R42 Dizziness and giddiness (principal); R53.83 Other fatigue; R20.0 Anesthesia of skin; R06.83 Snoring; R06.81 Apnea, not elsewhere classified; M54.50 Low back pain, unspecified; M25.50 Pain in unspecified joint; R29.898 Other symptoms and signs involving the musculoskeletal system; M72.2 Plantar fascial fibromatosis | CPT/HCPCS: 96127 ==

== ENCOUNTER 2024-11-29 07:06 | Outpatient (REF) | payer OTHER, SELFPAY ==
[2024-11-29 07:28] LABS: MANUAL DIFF FLAG NO
[2024-11-29 08:32] LABS: Hematocrit 41.4 % (42.0-52.0); Hemoglobin 14.1 g/dl (14.0-18.0); Imm Gran Abs Auto 0.01 X10*3/uL (0.00-0.03); Imm Gran Pct Auto 0.2 % (0.0-0.4); Lymphocytes Absolute Auto 1.6 X10*3/uL (1.2-4.9); Mean Corpuscular HGB Conc 34.1 g/dl (31.0-36.0); Mean Corpuscular Hemoglobin 31.0 pg (27.0-33.0); Mean Corpuscular Volume 91.0 fL (80.0-98.0); NRBC Abs Auto 0.000 X10*3/uL (0.0-0.012); NRBC Pct Auto 0.0 /100WBC (0.0-0.2); Platelet Count 220 X10*3/uL (160-400); Red Blood Count 4.55 X10*6/uL (4.60-5.80); White Blood Count 5.9 X10*3/uL (4.8-10.8)
[2024-11-29 08:41] LABS: Hemoglobin A1C 129.9652 umol/L; Total Hemoglobin (HGBA1C) 3656.0531 umol/L
[2024-11-29 08:52] LABS: Alanine Aminotransferase 33 U/L (0-40); Albumin Level 4.7 g/dL (3.5-5.0); Alkaline Phosphatase 59 U/L (39-117); Anion Gap 11 (12-20); Aspartate Amino Transferase 26 U/L (5-37); Blood Urea Nitrogen 18 mg/dL (9-16); Calcium 9.3 mg/dL (8.4-10.2); Carbon Dioxide 29 mmol/L (22-29); Chloride 107 mmol/L (96-108); Estimated Glomerular Filt Rate > 60; Potassium 4.6 mmol/L (3.3-5.1); Sodium 142 mmol/L (135-145); Total Protein 7.1 g/dL (6.5-8.0); Uric Acid 7.1 mg/dL (3.4-7.0)
[2024-11-29 08:58] LABS: B Type Natriuretic Peptide 30 pg/mL (<100)
[2024-11-29 09:17] LABS: Appearance Urine Clear; Glucose Urine UA Negative (Negative); PH 8.0 (5.0-9.0); Specific Gravity - Urine 1.020 (1.005-1.025)
[2024-11-29 09:18] LABS: Folate 10.7 ng/mL (> or = 4.0); Vitamin B12 356 pg/mL (200-900)
[2024-11-30 05:28] LABS: Lyme Abs Screen <0.90 index
[2024-12-01 10:53] LABS: Anti Nuclear Antibody Screen NEGATIVE (NEGATIVE)
[2024-12-06 13:39] LABS: Testosterone, Free 107.3 pg/mL (35.0-155.0)
== END 2024-11-29 07:07 | disposition home or self-care (01) ==
LOC: HO.LAB 07:06
DX: Z00.00 Encounter for general adult medical examination without abnormal findings (principal); R42 Dizziness and giddiness; M25.50 Pain in unspecified joint; M25.40 Effusion, unspecified joint; M77.10 Lateral epicondylitis, unspecified elbow; R53.83 Other fatigue; Z11.9 Encounter for screening for infectious and parasitic diseases, unspecified; Z13.1 Encounter for screening for diabetes mellitus; Z13.21 Encounter for screening for nutritional disorder
CPT/HCPCS: 36415; 80053; 81003; 82306; 82607; 82746; 83036; 83880; 84402; 84403; 84443; 84550; 85025; 85652; 86038; 86141; 86617; 86618

== ENCOUNTER 2024-12-03 13:09 | Outpatient (AMB) | payer OTHER, SELFPAY ==
[2024-12-03 13:16] VITALS: BP 144/62; PULSE 80; RESP 18; O2SAT 97; BMI 26.0
--- NOTE | 2024-12-03 13:16 | A.OFFPC_ITS ---
Vital Signs 12/03/24 13:16 Height 6 ft 2 in Weight 202 lb 6 oz BMI 26.0 BP 144/62 H Blood Pressure Location Lt brachial Position Sitting Respiration 18 Pulse 80 Pulse Source Pulse Oximeter Temp Source Temporal Artery Scan Pulse Oximetry (%) 97 Oxygen Delivery Method Room Air Intake Visit Reasons: dizziness/fatigue/joint pain Feather Boner Required: No Accompanied by: Self / Same As Patient Allergies No Known Allergies (No Known Allergies*) Allergy (Verified 12/03/24 13:35) Medication List - Last Reconciled 12/03/24 by SILVA Villegas No Known Home Meds Tobacco use date assessed: 12/03/24 Dental Screening Dental Screen Date: 12/03/24 Did you have a dental visit in the last 12 months?: No Did you have a dental problem in the last 6 months where you did not have access to dental care?: No Was dental information given to patient?: No HPI dizziness/fatigue/joint pain HPI Details The patient is a 49-year-old male presenting with dizziness. The dizziness has been occurring intermittently for the past couple of months, primarily when standing up quickly, and is sometimes accompanied by a need to focus on a fixed point to regain balance. The patient denies any spinning sensation but reports occasional headaches lasting a couple of days. The patient underwent laboratory testing, which revealed a slightly low red bl ood cell count and elevated uric acid levels. The uric acid level is one point above the high normal, and the patient reports joint pain, particularly in the foot, which prompted the uric acid test to check for gout. The patient also has a history of vitamin D deficiency, which was noted to be slightly low in recent tests. The patient is advised to take vitamin D3 supplements, with a recommendation of 1000 IU daily, though 2000 IU is also considered safe. The patient also was ordered for a sleep study on his previous visit. He is wondering if he could have the home study instead of going lab to not having anyone taking care of his dog without making added plans. [facility] Medical History Tubular adenoma History of abscessed tooth Lateral epicondylitis of elbow Medial epicondylitis of both elbows Surgical History Hx of colonoscopy No pertinent past surgical history Family History Mother No problems noted. Father No problems noted. Social History Housing: Apartment Patient Tobacco Use Status: Current everyday Tobacco user Tobacco use type: Cigarette Cigarettes Per Day: 10 Years Smoked: 20 e-Cigarette/Vaping Use: Never Used Second Hand Smoke Exposure: No service: No Current occupational status: employed Current occupation: [employer] / [employer] Cognitive needs: No Hearing needs: No Vision needs: No Questionnaire Thrive Questionnaire Date Thrive assessed: 10/22/24 I am a: Patient What is your living situation today?: I have a steady place to live Within the past 12 months, did the food you bought not last and you didn't have the money to get more?: Sometimes True Within the past 12 months, did you worry whether your food would run out before you got money to buy more?: Sometimes True Do you have trouble paying for medicines?: No Do you have trouble getting transportation to medical appointments?: No Do you have trouble paying your heating and electricity bill?: No Do you have trouble taking care of your child, family member or friend?: No Do you have trouble with day-to-day activities such as bathing, preparing meals, shopping, managing finances, etc.?: No Are you currently unemployed and looking for a job?: No Are you interested in more education?: No Please select the resources that you would like help with: None Currently or been in a relationship where the following occur: No concerns reported THRIVE Score: 2 TESS-7 AMB Questionnaire TESS-7 Date TESS - 7 assessed: 10/22/24 Source: Developed by Drs. Tyrone Perdomo, Shaye Escobar, Jose Eduardo Quesada and colleagues, with an educational monty from [employer]. Review of Systems Const Denies body aches, Denies chills, Reports difficulty sleeping, Denies fever(s), Denies headache(s), Reports lethargy and Denies poor appetite Eyes Reports no additional complaints ENT Denies dysphagia, Reports vertigo, Reports dizziness, Denies headache(s) and Denies odynophagia Card Denies chest pain, Denies syncope, Denies edema, Denies irregular heart rhythm, Denies lightheadedness and Denies dyspnea Resp Denies cough and Denies dyspnea GI Denies abdominal pain, Denies constipation, Denies dysphagia, Denies diarrhea, Denies nausea, Denies odynophagia and Denies vomiting Reports no additional complaints Musc Reports arthralgias (multiple joints) Skin/Breast Reports system reviewed and no additional complaints, except as documented Neuro Denies Abnormal speech present, Reports vertigo, Reports dizziness, Denies syncope and Denies headache(s) Psych Reports no additional complaints Physical exam (Primary Care) Vital Signs: Last Vital Signs Pulse 80 12/03/24 13:16 Resp 18 12/03/24 13:16 BP 144/62 H 12/03/24 13:16 Pulse Ox 97 12/03/24 13:16 Oxygen Delivery Method Room Air 12/03/24 13:16 BMI result Body Mass Index 26.0 Tobacco/Smoking Status: Tobacco use Status Tobacco use date assessed 12/03/24 12/03/24 13:23 Patient Tobacco Use Status Current everyday Tobacco 12/03/24 13:23 Tobacco use type Cigarette 12/03/24 13:23 e-Cigarette/Vaping Use Never Used 12/03/24 13:23 Thrive Assessment: Date of Thrive Assessment Date Thrive assessed 10/22/24 12/03/24 13:23 Currently or been in a relationship where the following occur: No concerns reported Const General: healthy appearing, no acute distress, alert and awake Nutritional Appearance: well nourished Orientation/consciousness: oriented to person, oriented to place and oriented to time HENMT Ears: TM's normal bilaterally General nose exam: Normal nasal mucous membranes and turbinates present Eyes Conjunctivae: conjunctivae normal Sclerae: sclerae normal Pupils: Equal, round and reactive pupils present Neck Neck: Yes no lymphadenopathy and Yes no JVD Thyroid: Thyroid normal Carotids: no bruits Resp Effort & Inspection: normal respiratory effort and not tachypneic Auscultation: no crackles, no rales, no rhonchi and no wheezes Cardio Rate: regular rate Rhythm: regular rhythm Heart sounds: no murmurs and normal S1 and S2 GI Palpation (GI): Soft to palpation, nontender, no hepatomegaly and no splenomegaly Auscultation: normal bowel sounds General: Yes no CVA tenderness Back/Spine/Pelvis Back: no CVA tenderness Thoracic/Lumbar Spine: No lumbar spinal tenderness Skin General skin exam: no rashes or lesions noted and dry skin Neuro General: oriented to person, oriented to place, oriented to time, no focal motor deficits and CN's II-XI intact bilaterally Cranial nerves: Yes Equal, round and reactive pupils present and Yes Nystagmus not present Speech: No Abnormal speech present Gait exam (Neuro): Normal gait present Motor exam (neuro): 5/5 motor strength present throughout and no tremor noted Extrem Right upper extremity: full ROM Left upper extremity: full ROM Right lower extremity: full ROM; no edema Left lower extremity: full ROM; no edema Psych Mental Status: mental status grossly normal Speech and movement: Normal speech and movement present Affect: normal affect Attitude: cooperative Thought process: Normal thought process present Coding Level of Care Code Est Pt Level 3 (72472) Diagnoses Benign paroxysmal positional vertigo due to bilateral vestibular disorder H81.13 Laterality: bilateral Vertigo R42 Medial epicondylitis of both elbows M77.01; M77.02 Lateral epicondylitis of both elbows M77.11; M77.12 Laterality: bilateral Fatigue, unspecified type R53.83 Fatigue type: unspecified Snoring R06.83 Vitamin D deficiency E55.9 Gout of multiple sites, unspecified cause, unspecified chronicity M10.9 Gout site: multiple sites Gout etiology: unspecified cause Chronicity: unspecified Anemia, unspecified type D64.9 Anemia type: unspecified type Time Spent (min) 36 Assessment & Plan Assessment & Plan (1) BPPV (benign paroxysmal positional vertigo): Code(s): H81.10 - Benign paroxysmal vertigo, unspecified ear Category: Medical Qualifiers: Laterality: bilateral Qualified Code(s): H81.13 - Benign paroxysmal vertigo, bilateral Plan: Ongoing positional dizziness PT ordered for vestibular therapy (2) Vertigo: Code(s): R42 - Dizziness and giddiness Category: Medical Plan: Same as above (3) Medial epicondylitis of both elbows: Code(s): M77.01 - Medial epicondylitis, right elbow; M77.02 - Medial epicondylitis, left elbow Category: Medical Plan: Continue conservative measures. Reports that this is not bothersome at this time. (4) Lateral epicondylitis of elbow: Code(s): M77.10 - Lateral epicondylitis, unspecified elbow Category: Medical Qualifiers: Laterality: bilateral Qualified Code(s): M77.11 - Lateral epicondylitis, right elbow; M77.12 - Lateral epicondylitis, left elbow Plan: same as above (5) Fatigue: Code(s): R53.83 - Other fatigue Category: Medical Qualifiers: Fatigue type: unspecified Qualified Code(s): R53.83 - Other fatigue Plan: The patient ISMA negative, lovelock panel was negative. Slightly anemic and vitamin D slightly low as well. The patient was encouraged to start vitamin D supplement and continue adhering to adequate hydration. Awaiting sleep study to further evaluate. (6) Snoring: Code(s): R06.83 - Snoring Category: Medical Plan: awaiting sleep study results (7) Vitamin D deficiency: Code(s): E55.9 - Vitamin D deficiency, unspecified Category: Medical Plan: Encouraged vitamin D3 1000 IU OTC use daily (8) Gout: Code(s): M10.9 - Gout, unspecified Category: Medical Qualifiers: Gout site: multiple sites Gout etiology: unspecified cause Chronicity: unspecified Qualified Code(s): M10.9 - Gout, unspecified Plan: The patient's uric acid level is slightly elevated, and joint pain in the foot suggests a potential for gout, though the elevation is minimal. Reports that his joint pain in the foot is related to a sprain and this has not been bad. Will continue to monitor (9) Anemia: Code(s): D64.9 - Anemia, unspecified Category: Medical Qualifiers: Anemia type: unspecified type Qualified Code(s): D64.9 - Anemia, unspecified Plan: slightly below normal levels less likely the reason for the patient tiredness awaiting for the completion of sleep study to further eval Orders: Orders ISMA Reflex Titer and Pattern 12/03/24 M25.40 - Effusion, unspecified joint, M25.50 - Pain in unspecified joint Lyme IgG/IgM w/reflex to WB 12/03/24 M25.40 - Effusion, unspecified joint, M25.50 - Pain in unspecified joint PT Evaluation and Treatment 12/03/24 H81.10 - Benign paroxysmal vertigo, unspecified ear, R42 - Dizziness and giddiness RT home sleep study 12/03/24 R06.81 - Apnea, not elsewhere classified, R06.83 - Snoring, R53.83 - Other fatigue
== END 2024-12-03 14:12 | disposition home or self-care (01) ==
LOC: HO.HMCH 13:09
PROVIDERS: PCP Internal Medicine
DX: H81.13 Benign paroxysmal vertigo, bilateral (principal); R42 Dizziness and giddiness; M77.01 Medial epicondylitis, right elbow; M77.02 Medial epicondylitis, left elbow; M77.11 Lateral epicondylitis, right elbow; M77.12 Lateral epicondylitis, left elbow; R53.83 Other fatigue; R06.83 Snoring; E55.9 Vitamin D deficiency, unspecified; M10.9 Gout, unspecified; D64.9 Anemia, unspecified

== ENCOUNTER 2025-01-25 11:59 | Outpatient (REF) | payer OTHER, SELFPAY ==
[2025-01-26 07:28] LABS: Lyme Abs Screen <0.90 index
[2025-01-29 12:33] LABS: Anti Nuclear Antibody Screen NEGATIVE (NEGATIVE)
== END 2025-01-25 12:00 | disposition home or self-care (01) ==
LOC: HO.LAB 11:59
DX: Z01.84 Encounter for antibody response examination (principal); M25.40 Effusion, unspecified joint; M25.50 Pain in unspecified joint
CPT/HCPCS: 36415; 86038; 86617; 86618